=== PATIENT | male | born 1965 | race Two or more races ===

== ENCOUNTER 2016-07-05 23:28 | Emergency (ER) | payer MEDICAID, OTHER ==
[2016-07-05 23:40] VITALS: BP 183/92
[2016-07-05 23:48] LABS: Urine RBC None Seen /hpf (0 - 3)
[2016-07-06 00:27] LABS: Urine Bilirubin Negative (Negative); Urine Blood Negative /uL (Negative); Urine Color Yellow (Yellow); Urine Glucose Normal (Normal); Urine Nitrite Negative (Negative); Urine Squamous Epithelial Cell FEW /hpf (<5); Urine pH 6.5 (5.0-8.0)
[2016-07-06 00:28] LABS: Urine Ketone 1+ (Negative)
== END 2016-07-06 00:51 | disposition home or self-care (01) ==
LOC: ER 23:28
DX: N39.0 Urinary tract infection, site not specified (principal); E11.9 Type 2 diabetes mellitus without complications; I10 Essential (primary) hypertension
CPT/HCPCS: 81001

== ENCOUNTER 2017-07-11 12:47 | Inpatient (IN) | payer MEDICAID ==
[~2017-07-11] VITALS: Ht 167.6 cm; Wt 94.4 kg
[2017-07-11] VITALS (7 sets, daily range): BP systolic 116–160; BP diastolic 67–81
[2017-07-11 14:31] LABS: Basophils # (auto) 0 uL; Eosinophils # (auto) 0.1 uL; Lymphocytes # (auto) 0.9 uL; Monocytes # (auto) 0.3 uL; Neutrophils # (auto) 1.7 uL
[2017-07-11 14:32] LABS: Eosinophils % (auto) 3.6 % (0.0-7.0); Hematocrit 25.1 % (41.0-53.0); Lymphocytes % (auto) 30.2 % (10.0-50.0); Mean Corpuscular Hemoglobin 15.6 pg (28.0-32.0); Mean Corpuscular Hgb Conc. 27.9 g/dL (32.0-36.0); Monocytes % (auto) 9.1 % (0.0-12.0); Neutrophils % (auto) 56.1 % (37.0-80.0); Nucleated Red Blood Cells % 0.1 %; Platelet Count (auto) 202 10^3/uL (140-450); Red Blood Cells 4.47 10^6/uL (4.5-5.90); White Blood Cell 2.9 10^3/uL (4.4-10.8)
[2017-07-11 14:50] LABS: Alanine Aminotransferase 52 U/L (16-61); Albumin 3.3 g/dL (3.4-5.0); Alkaline Phosphatase 60 U/L (45-117); Anion Gap 7 (5-15); Aspartate Aminotransferase 17 U/L (15-37); BUN/Creatinine Ratio 17.6; Bilirubin, Total 0.3 mg/dL (0.2-1.0); Blood Urea Nitrogen 18 mg/dL (7-18); Carbon Dioxide 24 mmol/L (21-32); Chloride 112 mmol/L (98-107); GFR African American 100 mL/min; GFR Non-African American 83 mL/min; Glucose 99 mg/dL (74-106); Potassium 4.3 mmol/L (3.5-5.1); Red Cell Distribution Width 20.6 % (11.8-14.3); Sodium 143 mmol/L (136-145); Total Protein 6.7 g/dL (6.4-8.2)
[2017-07-11] MEDS ORDERED: ONDANSETRON HCL 4 MG/2 ML VIAL IV PRN (16:15)
[2017-07-11] MEDS ORDERED: MORPHINE SULFATE 4 MG/ML SYR/VIAL IV PRN (16:15)
[2017-07-11] MEDS ORDERED: NITROGLYCERIN 0.4 MG SL TAB SL PRN (16:15)
[2017-07-11] MEDS ORDERED: PANTOPRAZOLE 40 MG TAB PO ONE (16:15)
[2017-07-11 16:31] LABS: % Iron Saturation 2.5 % (20-55)
[2017-07-11 16:56] LABS: Folate (Folic Acid) 19.05 ng/mL (5.38-24)
[2017-07-11] MEDS: HYDROcodone-ACET 5/325MG TAB PO PRN ×2 (17:42→22:00)
[2017-07-11 21:33] LABS: Urine Bacteria NONE SEEN /hpf (None Seen); Urine Blood Negative /uL (Negative); Urine Mucus FEW (None Seen); Urine WBC 2 /hpf (0 - 3)
[2017-07-12] MEDS ORDERED: TEMAZEPAM 15 MG CAP PO ONE (00:30)
[2017-07-12 00:55] VITALS: BP 138/87
[2017-07-12] MEDS ORDERED: HYDR-531 PO (01:18)
[2017-07-12] MEDS ORDERED: LEVO50TA7 PO (01:19)
[2017-07-12 01:51] VITALS: BP 133/79
[2017-07-12] MEDS: HYDROcodone-ACET 5/325MG TAB PO PRN ×2 (03:57→08:48)
[2017-07-12 04:23] VITALS: BP 144/85
[2017-07-12 05:43] LABS: Basophils # (auto) 0 uL; Eosinophils # (auto) 0.1 uL; Hemoglobin 8.3 g/dL (13.5-17.5); Monocytes # (auto) 0.4 uL; White Blood Cell 3.6 10^3/uL (4.4-10.8)
[2017-07-12 05:45] LABS: Basophils % (auto) 0.8 % (0.0-2.0); Eosinophils % (auto) 2.8 % (0.0-7.0); Hematocrit 27.6 % (41.0-53.0); Lymphocytes # (auto) 1.5 uL; Lymphocytes % (auto) 40.4 % (10.0-50.0); Mean Corpuscular Hemoglobin 17.9 pg (28.0-32.0); Mean Corpuscular Hgb Conc. 29.9 g/dL (32.0-36.0); Mean Corpuscular Volume 60.1 fL (80.0-100.0); Monocytes % (auto) 11.4 % (0.0-12.0); Neutrophils # (auto) 1.6 uL; Neutrophils % (auto) 44.6 % (37.0-80.0); Nucleated Red Blood Cells % 0.1 %; Platelet Count (auto) 174 10^3/uL (140-450)
[2017-07-12 05:49] LABS: Red Cell Distribution Width 23.8 % (11.8-14.3)
[2017-07-12 05:51] LABS: INR 0.96 (0.9-1.15); Partial Thromboplastin Time 22.5 sec (22.64-33.71); Prothrombin Time 10.5 sec (9.37-12.3)
[2017-07-12 09:21] VITALS: BP 150/74
[2017-07-12] MEDS ORDERED: PANTOPRAZOLE 40 MG TAB PO SCH (10:00)
[2017-07-12 13:00] VITALS: BP 158/88
[2017-07-12 14:02] VITALS: BP 143/86
== END 2017-07-12 16:49 | disposition home or self-care (01) | DRG 663 ==
LOC: ER 12:51 → OVERFLOW 12:52 → WEST WING 18:18
PROVIDERS: ADMIT Internal Medicine; ATTEND Internal Medicine
PROC: 30233N1 Transfusion of Nonautologous Red Blood Cells into Peripheral Vein, Percutaneous Approach (ICD-10-PCS; principal; 2017-07-12)
DX: D50.9 Iron deficiency anemia, unspecified (principal); N31.9 Neuromuscular dysfunction of bladder, unspecified; I10 Essential (primary) hypertension; E66.9 Obesity, unspecified; E03.9 Hypothyroidism, unspecified; E11.9 Type 2 diabetes mellitus without complications; K21.9 Gastro-esophageal reflux disease without esophagitis; K57.90 Diverticulosis of intestine, part unspecified, without perforation or abscess without bleeding; Z87.891 Personal history of nicotine dependence; Z68.33 Body mass index [BMI] 33.0-33.9, adult
CPT/HCPCS: 36415; 36430; 80053; 81001; 82270; 82607; 82746; 83036; 83540; 83550; 84484; 85025; 85610; 85730; 86850; 86900; 86901; 86920; 94761

== ENCOUNTER 2018-08-06 14:47 | Emergency (ER) | payer MEDICAID ==
[~2018-08-06] VITALS: Ht 170.2 cm; Wt 90.7 kg
[~2018-08-06 14:47] MED LIST: HYDR-531 PO; LEVO50TA7 PO
[2018-08-06 14:51] VITALS: BP 150/95
== END 2018-08-06 19:48 | disposition home or self-care (01) ==
LOC: ER 14:57
DX: S52.021A Displaced fracture of olecranon process without intraarticular extension of right ulna, initial encounter for closed fracture (principal); E11.9 Type 2 diabetes mellitus without complications; I10 Essential (primary) hypertension; W01.198A Fall on same level from slipping, tripping and stumbling with subsequent striking against other object, initial encounter; Y93.89 Activity, other specified; Y99.8 Other external cause status; Y92.39 Other specified sports and athletic area as the place of occurrence of the external cause
CPT/HCPCS: 29105; 73080

== ENCOUNTER 2019-11-25 00:38 | Inpatient (IN) | payer MEDICAID ==
[~2019-11-25] VITALS: Ht 170.2 cm; Wt 88.1 kg
[2019-11-25] VITALS (49 sets, daily range): BP systolic 88–127; BP diastolic 42–72
[2019-11-25] MEDS ORDERED: SODIUM CHLORIDE 0.9% 2,450 ML IV ONE (01:45)
[2019-11-25 02:25] LABS: Basophils # (auto) 0 10 ^3/uL (0-0.2); Eosinophils # (auto) 0 10 ^3/uL (0-0.8); Eosinophils % (auto) 0.1 % (0.0-7.0); White Blood Cell 16.1 10^3/uL (4.4-10.8)
[2019-11-25 02:26] LABS: Basophils % (auto) 0.1 % (0.0-2.0); Hematocrit 39.9 % (41.0-53.0); Hemoglobin 13.8 g/dL (13.5-17.5); Lymphocytes % (auto) 6.1 % (10.0-50.0); Mean Corpuscular Hemoglobin 27.6 pg (28.0-32.0); Mean Corpuscular Hgb Conc. 34.7 g/dL (32.0-36.0); Mean Corpuscular Volume 79.4 fL (80.0-100.0); Monocytes % (auto) 6.3 % (0.0-12.0); Neutrophils # (auto) 14.1 10 ^3/uL (1.6-8.6); Neutrophils % (auto) 87.4 % (37.0-80.0); Platelet Count (auto) 276 10^3/uL (140-450); Red Blood Cells 5.02 10^6/uL (4.5-5.90); Red Cell Distribution Width 17.5 % (11.8-14.3)
[2019-11-25 02:44] LABS: Albumin 2.9 g/dL (3.4-5.0); BUN/Creatinine Ratio 13.5; Calcium 7.8 mg/dL (8.5-10.1)
[2019-11-25 02:47] LABS: INR 1.01 (0.9-1.15); Partial Thromboplastin Time 27.6 sec (23.0-31.2)
[2019-11-25 02:48] LABS: Bilirubin, Total 0.3 mg/dL (0.2-1.0); Total Protein 6.7 g/dL (6.4-8.2)
[2019-11-25 02:53] LABS: Potassium 2.4 mmol/L (3.5-5.1)
[2019-11-25] MEDS ORDERED: CLINDAMYCIN 300MG IV 50 ML IV ONE (03:00)
[2019-11-25] MEDS ORDERED: cefTRIAXone 1GM/50ML D5W 50 ML IV ONE (03:00)
[2019-11-25] MEDS ORDERED: POTASSIUM CHL 20 Meq TABLET PO ONE ×2 (03:00→12:00)
[2019-11-25 03:35] LABS: Urine Bacteria MOD /hpf (None Seen); Urine Blood 3+ /uL (Negative); Urine Hyaline Cast MANY /lpf (0 - 2); Urine Mucus FEW (None Seen); Urine WBC 882 /hpf (0 - 3); Urine WBC Clumps PRESENT /hpf (None Seen)
[2019-11-25] MEDS: MORPHINE SULFATE 4 MG/ML SYR/VIAL IV ONE ×2 (03:59→06:05)
[2019-11-25] MEDS ORDERED: ONDANSETRON HCL 4 MG/2 ML VIAL IV ONE (04:00)
[2019-11-25] MEDS ORDERED: SODIUM CHLORIDE 0.9% 1,000 ML IV ONE (05:15)
[2019-11-25] MEDS ORDERED: NOREPINEPHRINE 8 MG/250ML KIT 250 ML IV ONE (05:50)
[2019-11-25] MEDS ORDERED: NOREPINEPHRINE 8 MG/250ML KIT 250 ML IV SCH (06:15)
[2019-11-25] MEDS: NOREPINEPHRINE 8 MG/250ML KIT 250 ML IV SCH ×3 (06:21→19:44)
[2019-11-25] MEDS ORDERED: MORPHINE SULF INJ 2 MG/ML SYRINGE 1ML IV PRN (07:00)
[2019-11-25] MEDS ORDERED: NITROGLYCERIN 0.4 MG SL TAB SL PRN (07:00)
[2019-11-25] MEDS ORDERED: ONDANSETRON HCL 4 MG/2 ML VIAL IV PRN (07:00)
[2019-11-25] MEDS ORDERED: LORazepam 0.5 MG TAB PO PRN (07:00)
[2019-11-25] MEDS ORDERED: ACETAMINOPHEN 325 MG TAB PO PRN (07:00)
[2019-11-25] MEDS: cefTRIAXone 1GM/50ML D5W 50 ML IV SCH (09:47)
[2019-11-25] MEDS: SODIUM CHLORIDE 0.9% 1,000 ML IV SCH ×2 (09:47→16:41)
[2019-11-25] MEDS: DOCUSATE SOD 100 MG CAP PO SCH (09:47)
[2019-11-25] MEDS: ASPirin 81 mg TAB PO SCH (09:47)
[2019-11-25] MEDS: POTASSIUM CHL 20MEQ/100ML 100 ML IV SCH ×2 (09:47→10:23)
[2019-11-25] MEDS: HYDROcodone-ACET 5/325MG TAB PO PRN ×4 (09:50→23:33)
[2019-11-25] MEDS: ENOXAPARIN SOD 80 MG/0.8ML SYRINGE SC SCH (09:51)
[2019-11-25] MEDS ORDERED: CLOPIDOGREL BISULFATE 75 MG TAB PO SCH (10:00)
[2019-11-25] MEDS ORDERED: ENALAPRIL MALEATE 2.5 MG TAB PO SCH (10:00)
--- NOTE | 2019-11-25 10:25 | NUR ---
Admit to ICU from [facility] admitted to ICU via judy on monitor technician, on room air. Patient able to transfer to ICU bed with no assistance, patient connected to ICU monitoring, weighed by bedscale, oriented to Janett Antony, primary RN, unit, and no visitors at this time due to Covid 19.
--- NOTE | 2019-11-25 11:20 | NUR ---
HOSPITALIST VISITS/WOUND CARE PICS TAKEN DR GARCIA AT BEDSIDE, UPDATED ON PATIENTS STATUS, ORDERS WILL BE ENTERED BY DR GARCIA. WOUND CARE PICS TO LEFT HEEL TAKEN, PENDING WOUND CARE CONSULT.
--- NOTE | 2019-11-25 11:40 | NUR ---
Family updated on pt status Family of [facility] updated on patient's status and condition, Usha unable to verify password at this time. Patient will be notified and asked to give his sister a call. Usha verbalized understanding.
[2019-11-25] MEDS ORDERED: LEVO75TA6 PO (12:08)
[2019-11-25 12:25] LABS: Magnesium 2.3 mg/dL (1.6-2.6)
[2019-11-25] MEDS ORDERED: FURO40TA4 PO (12:35)
[2019-11-25] MEDS ORDERED: POTA10TA32 PO (12:35)
[2019-11-25] MEDS ORDERED: FLUT1SPR5 (12:36)
[2019-11-25] MEDS ORDERED: ERGO1CAP12 PO (12:39)
[2019-11-25] MEDS ORDERED: DICL-176 PO (12:40)
[2019-11-25] MEDS ORDERED: IBUP800T24 PO (12:41)
[2019-11-25] MEDS ORDERED: FERR325T20 PO (12:41)
[2019-11-25] MEDS ORDERED: AMIT150T PO (12:42)
[2019-11-25] MEDS ORDERED: TEST200I32 IJ (12:43)
[2019-11-25] MEDS ORDERED: CYAN1TAB11 PO (12:44)
[2019-11-25] MEDS ORDERED: PANTOPRAZOLE 40 MG/10 ML VIAL INJ IV ONE (13:15)
--- NOTE | 2019-11-25 13:36 | NUR ---
PAGED HOSPITALIST RE IN HOUSE COVID PAGED DR GARCIA TO NOTIFY OF NEGATIVE IN HOUSE COVID RESULTS, AWAITING RESPONSE.
[2019-11-25] MEDS ORDERED: LIDO5PAD8 EX (13:39)
[2019-11-25] MEDS ORDERED: ESZO1TAB15 PO (13:39)
[2019-11-25] MEDS ORDERED: PANT40TA2 PO (13:40)
[2019-11-25] MEDS ORDERED: POM PO (13:43)
[2019-11-25] MEDS ORDERED: SULF-92 PO (13:46)
[2019-11-25] MEDS: CLINDAMYCIN 600MG IV 50 ML IV SCH ×2 (14:01→21:20)
--- NOTE | 2019-11-25 15:02 | NUR ---
NEPHROLOGY/APPLICATION DESIGNER AT BEDSIDE DR TRAN UPDATED ON PATIENT'S STATUS, DR TRAN DISCUSSED PLAN OF CARE WITH PATIENT. APPLICATION DESIGNER AT BEDSIDE.
[2019-11-25 16:10] LABS: Potassium 2.6 mmol/L (3.5-5.1)
--- NOTE | 2019-11-25 16:18 | NUR ---
PAGED HOSPITALIST/NEPHROLOGY REGARDING CRITICAL LAB VALUE - POTASSIUM 2.6, AWAITING RESPONSE.
--- NOTE | 2019-11-25 16:21 | NUR ---
RETURN CALL FROM DR TRAN AWARE OF POTASSIUM LEVEL, STATED SHE WOULD ENTER ORDERS.
[2019-11-25 16:28] LABS: Alcohol, Urine < 3.0 mg/dL (0-10); Amphetamine Screen, Urine NEGATIVE (NEGATIVE); Barbiturate Scree,Urine NEGATIVE (NEGATIVE); Benzodiazephine Screen, Urine NEGATIVE (NEGATIVE); Cannabinoid Screen, Urine NEGATIVE (NEGATIVE); Cocaine Screen, Urine NEGATIVE (NEGATIVE); Opiate Scree,Urine NEGATIVE (NEGATIVE); Phencyclidine Screen, Urine NEGATIVE (NEGATIVE)
[2019-11-25] MEDS: POTASSIUM CHL 20 Meq TABLET PO SCH ×2 (16:40→17:58)
--- NOTE | 2019-11-25 16:45 | NUR ---
SPOKE WITH NEPHROLOGY DR TRAN AWARE OF URINE OUTPUT THUS FAR AND REPEAT POTASSIUM LEVEL AFTER ADMINISTERING ORAL MEDICATIONS. ORDERS TO REPEAT POTASSIUM AT 2200 TONIGHT AND VERBALIZED UNDERSTANDING FOR URINE OUTPUT.
--- NOTE | 2019-11-25 19:36 | NUR ---
OPENING NOTE REPORT RECEIVED AND ASSUMED CARE OF PT. BEDSIDE CHECK DONE WITH RN CEDRIC. ORIENTED PT TO THIS RN, FALL PRECAUTIONS, AND POC FOR THIS EVENING. PT VERBALIZED UNDERSTANDING. PHYSICAL ASSESSMENT DONE. PT IS A0X4, INDEPENDENT WITH MILD WEAKNESS TO BLE DUE TO WOUND HE SAID HE GOT FROM STEPPING ON A CAN AND STATED HX OF NEUROPATHY. R TLC RUNNING FLUIDS PER ORDERS AND LEVO GTT PER PROTOCOL- SEE IV SPREADSHEET. GALLEGOS CATHETER PT CAME IN WITH AND SAYS HE GETS CATHETER SWITCHED OUT ONCE A MONTH BUT DOES NOT KNOW EXACT DAY CURRENT ONE WAS INSERTED. WILL CONTINUE TO MONITOR AND ASSESS PT.
--- NOTE | 2019-11-25 21:36 | NUR ---
PT CARE/ACTIVITY PT REQUESTING BATH. THIS RN STOOD BY TO ASSIST PT STOOD AT BEDSIDE TO BATHE HIMSELF. NO REPORTS OF DIZZINESS/SOB AND STABLE VITAL SIGNS. SP02 READINGS LABILE DUE TO PT MOVEMENT. ENCOURAGED AND EDUCATED PT ON IMPORTANCE OF STAYING IN BED DUE TO VASOPRESSOR THERAPY. VERBALIZED UNDERSTANDING AT THIS TIME. WOUND TO LEFT HEEL CLEANSED WITH GAUZE AND WOUND SEAT COVER INSTALLER. ROSA MARIA APPLIED UNDER TO ABSORB ANY DRAINAGE FROM FOOT. PT BRUSHED HIS TEETH INDEPENDENTLY AND NEW GOWN APPLIED.
[2019-11-25] MEDS ORDERED: ATORVASTATIN 20 MG TAB PO SCH (22:00)
[2019-11-25] MEDS: ZOLPIDEM TARTRATE 5 MG TAB PO PRN (23:33)
[2019-11-26] VITALS (81 sets, daily range): BP systolic 71–153; BP diastolic 16–84
--- NOTE | 2019-11-26 02:08 | NUR ---
PT ACTIVITY PT INSISTENT ON GETTING OOB TO BEDSIDE CHAIR TO HELP WITH HIS BACK AND LEG PAIN DESPITE BEING EDUCATED ON SIDE EFFECTS OF VASOPRESSOR THERAPY. THIS RN AT BEDSIDE TO ASSIST AND MONITOR. VSS. PT PLACED IN CHAIR WITH CALL LIGHT AND EDUCATED ON FALL PRECAUTIONS. VERBALIZED UNDERSTANDING.
--- NOTE | 2019-11-26 02:26 | NUR ---
PT PLACED BACK IN BED WITH NO COMPLAINTS OF DIZZINESS/SOB/DISTRESS. CALL LIGHT WITHIN REACH.
[2019-11-26 05:06] LABS: Basophils # (auto) 0 10 ^3/uL (0-0.2); Basophils % (auto) 0.1 % (0.0-2.0); Eosinophils # (auto) 0 10 ^3/uL (0-0.8); Eosinophils % (auto) 0.4 % (0.0-7.0); Hematocrit 37.1 % (41.0-53.0); Hemoglobin 12.7 g/dL (13.5-17.5); Lymphocytes % (auto) 10.1 % (10.0-50.0); Mean Corpuscular Hemoglobin 27.5 pg (28.0-32.0); Mean Corpuscular Hgb Conc. 34.3 g/dL (32.0-36.0); Mean Corpuscular Volume 80.1 fL (80.0-100.0); Monocytes # (auto) 0.8 10 ^3/uL (0-1.3); Monocytes % (auto) 8.4 % (0.0-12.0); Neutrophils # (auto) 7.6 10 ^3/uL (1.6-8.6); Platelet Count (auto) 223 10^3/uL (140-450); Red Blood Cells 4.63 10^6/uL (4.5-5.90); Red Cell Distribution Width 16.8 % (11.8-14.3); White Blood Cell 9.4 10^3/uL (4.4-10.8)
[2019-11-26] MEDS: HYDROcodone-ACET 5/325MG TAB PO PRN ×4 (05:09→22:13)
[2019-11-26] MEDS: CLINDAMYCIN 600MG IV 50 ML IV SCH ×3 (05:32→22:12)
[2019-11-26 05:38] LABS: Albumin 2.4 g/dL (3.4-5.0); Calcium 8.4 mg/dL (8.5-10.1); Magnesium 2.4 mg/dL (1.6-2.6); Potassium 3.1 mmol/L (3.5-5.1)
[2019-11-26 05:42] LABS: BUN/Creatinine Ratio 20.4; Bilirubin, Total 0.3 mg/dL (0.2-1.0); Total Protein 6.2 g/dL (6.4-8.2)
--- NOTE | 2019-11-26 08:00 | NUR ---
Opening Shift Note Assumed care of patient, awake and alert. No S/S of distress/SOB or pain. See interventions for complete assessment. Bed locked on low position, side rails up x2, bed alarms on at all times, call encarnacion within reach, instructed on POC and to call for assist PRN, will continue to monitor for changes Q1hr and PRN.
[2019-11-26] MEDS ORDERED: POTASSIUM CHL 20 Meq TABLET PO ONE (09:00)
[2019-11-26] MEDS: cefTRIAXone 1GM/50ML D5W 50 ML IV SCH (09:30)
[2019-11-26] MEDS: ENOXAPARIN SOD 80 MG/0.8ML SYRINGE SC SCH (09:30)
[2019-11-26] MEDS: ASPirin 81 mg TAB PO SCH (09:30)
[2019-11-26] MEDS: PANTOPRAZOLE 40 MG/10 ML VIAL INJ IV SCH (09:30)
[2019-11-26] MEDS: DOCUSATE SOD 100 MG CAP PO SCH (09:31)
--- NOTE | 2019-11-26 10:35 | NUR ---
Dr Nair at bedside. Updated on patient's status. Clarified if patient is a Covid 19 rule out since rapid test was done, received order to go ahead and perform COVID 19 PCR test. Patient seen and examined. Will carry out new orders.
--- NOTE | 2019-11-26 10:51 | NUR ---
COVID swab sent to lab
[2019-11-26] MEDS ORDERED: DEXTROSE (50%) 50ML SYRG IV PRN (11:00)
[2019-11-26] MEDS: SODIUM CHLORIDE 0.9% 1,000 ML IV SCH ×3 (11:14→23:11)
--- NOTE | 2019-11-26 11:21 | NUR ---
Dr Carver ay bedside, updated on patient's status. Patient seen and examined. Will carry out new orders.
[2019-11-26] MEDS: ACCU-CHEK COMFORT CURVE STRIP VI SCH ×3 (12:22→22:12)
--- NOTE | 2019-11-26 15:40 | NUR ---
Assisted patient from bed to bedside chair, fall precautions in place. Patient tolerated well.
[2019-11-26] MEDS: diphenhdrAMINE HCL 25 MG CAP PO PRN (16:45)
--- NOTE | 2019-11-26 18:00 | NUR ---
Patient's BP 120/73, Levophed drip turned off. Will continue to monitor.
--- NOTE | 2019-11-26 18:19 | NUR ---
WOUND CARE NOTE: IN TO SEE PATIENT AT THIS TIME FOR WOUND TO RIGHT HEEL. PATIENT ADMITTED TO [facility] WITH DIAGNOSIS OF NSTEMI, CELLULITIS OF LEFT FOOT, ACUTE RENAL FAILURE. CURRENT LEYDI SCORE IS 17. PATIENT IS AMBULATORY, ABLE TO SELF TURN/REPOSITION SELF. HE IS NOTED TO HAVE A CHRONIC 1 X 1 X 0.2 CM DFU ULCER TO THE RIGHT PLANTAR FOOT/HEEL. THERE IS A PODIATRY CONSULT ORDERED AND IS PENDING. WOUND BED IS COVERED WITH BLACK ESCHAR. PERIWOUND IS PINK, CALLOUSED. THERE IS NO DRAINAGE NOTED. CLEANSED WOUND WITH WOUND CLEANSER, PATTED DRY WITH STERILE GAUZE. WOUND PHOTO TAKEN UPON ADMIT, AND AGAIN AT THIS TIME FOR REFERENCE. APPLIED THERAHONEY. COVER WITH OPTIFOAM GENTLE DRESSING. PATIENT EDUCATED IN WOUND CARE/DIABETIC FOOT-WOUND CARE. PATIENT VERBALIZED UNDERSTANDING. RECOMMEND: SKIN/WOUND CARE PLAN, EOD/PRN DRESSING CHANGE WITH WOUND CLEANSER, THERAHONEY, OPTIFOAM GENTLE DRESSING, PODIATRY CONSULT (PENDING), DIETARY CONSULT, CONTINUED MONITORING BY WOUND CARE TEAM. Addendum: 11/26/19 at 1829 by Dacia Ang RN Amended: Links added.
--- NOTE | 2019-11-26 20:00 | NUR ---
ADMITTED ON 11/25/19 WITH NAUSEA, VOMITING, DIARRHEA, WEAKNESS. HYPOTENSIVE ON ADMISSION. LEVOPHED DISCONTINUED AT 1800 TODAY. MD DIAGNOSIS: NSTEMI, LEFT FOOT CHRONIC ULCER. RIJ TLC WITH NORMAL SALINE AT 100CC/HR. ALERT. ORIENTED. AMBULATORY TO CHAIR. NSR WITHOUT ECTOPY. HAS A GALLEGOS FROM HOME. LAST BLOOD SUGAR 81. COVID NEGATIVE. POTASSIUM 3.1, REPLACED WITH 60MEQ OF EFFERVESCENT. PLAN: NM BONE SCAN TOMORROW AT 8AM. ON SYNTHROID.
--- NOTE | 2019-11-26 20:52 | NUR ---
TROPONIN LEVEL DRAWN FROM CENTRAL LINE.
--- NOTE | 2019-11-26 21:00 | NUR ---
HE INFORMED ME OF ALL THE DETAILS OF BEING SHOT. HE HAS A GALLEGOS BECAUSE OF SEVERE URGENCY. AT HOME HE CLAMPS IT FOR 2 HOURS AT A TIME, THEN OPENS IT. STATED THAT PART OF HIS SMALL BOWEL WAS REMOVED. AT THE AGE OF 19 , HE WAS PARALYZED. NOW HE CAN WALK BUT HE CALLS IT A HOP ALONG. IF HE GETS DIARRHEA, THERE IS NO SPHINCTER CONTROL. IF HE HAS PAIN , HE TAKES NORCO FOR BACK PAIN, RIGHT ELBOW PAIN(PREVIOUS TRICEP REPAIR SURGERY), ANKLE PAIN OR PREVIOUS LEFT SHOULDER TEAR PAIN. HAS NO FEELING IN THE BOTTOM OF HIS LEFT FOOT. PARTIAL FEELING IN THE RIGHT FOOT. NO FEELING IN THE RIGHT LEG, HAS A BRACE FOR THAT LEG. HE STATES THAT HIS ORIGINAL NAUSEA/VOMITING ENDED AT HOME. STATED THAT HIS LAST DIARRHEA WAS AT HOME. DENIES FLANK PAIN. ATE 100% OF HIS DINNER. STEPPED ON A CAN 2 WEEKS AGO AND HAS A LEFT FOOT WOUND FROM THAT STILL. HE IS HIS MOMS CAREGIVER. HIS SISTER IS LOOKING AFTER HER WHILE HE IS HERE. BP: SYSTOLIC HAS REMAINED ABOVE 96.
--- NOTE | 2019-11-26 22:00 | NUR ---
ASKED FOR A NORCO FOR HIS LEVEL 7 BACK PAIN. ANTIBIOTIC HUNG. ALL NEW TUBING AND IVF HUNG. ACCUCHECK WITHIN NORMAL RANGE. CHANGED BLOOD PRESSURE READINGS TO Q 1 HOUR. SHIPPING TRACK SUPERVISOR AWARE OF TELE TRANSFER ORDERS.
[2019-11-27] VITALS (8 sets, daily range): BP systolic 103–112; BP diastolic 54–66
--- NOTE | 2019-11-27 | NUR ---
WALKED IN ROOM, PATIENT RUBBING HIS ULCER FOOT. LEG IS HOT FROM THE MID CALF DOWN. REDNESS AT ANKLE. REMOVED DRESSING. 2 SMALL WOUNDS WITH A DARK SCAB BASE. AREA SURROUNDING IT IS RED. SEROSANGUINOUS DRNG FROM BOTH WOUNDS. SPRAYED THE WOUNDS 7 TIMES WITH WOUND SPRAY. PATTED DRY WITH 4X4S. THERAHONEY PUT ON BOTH AREAS AND COVERED WITH A FOAM DRESSING. LUNGS CLEAR. BILATERAL RADIAL ARTERY PULSES STRONG. BOTH PEDALS ARE WEAK. PATIENT LAYS DOWN, SITS UP ON EDGE OF BED OCCASIONALLY. WHENEVER HIS BACK STARTS HURTING, HE WILL SIT ON THE EDGE OF THE BED. DOESN'T USE A PILLOW UNDER HIS LEG BECAUSE IT WILL PUT PRESSURE ON THE FOOT WOUNDS.
--- NOTE | 2019-11-27 00:29 | NUR ---
KEEPING BLOOD PRESSURE WITHIN AN ACCEPTABLE RANGE.
--- NOTE | 2019-11-27 01:00 | NUR ---
REQUESTED NU BLACK
[2019-11-27] MEDS: ZOLPIDEM TARTRATE 5 MG TAB PO PRN ×2 (01:15→22:25)
--- NOTE | 2019-11-27 02:00 | NUR ---
REQUESTED BLOOD PRESSURE CUFF OFF. NSR WITHOUT ECTOPY. LUNGS CLEAR. DENIES PAIN.
[2019-11-27] MEDS: HYDROcodone-ACET 5/325MG TAB PO PRN ×5 (02:48→22:24)
--- NOTE | 2019-11-27 02:50 | NUR ---
LEVEL 7 LEFT LEG PAIN. DANIELA GIVEN
--- NOTE | 2019-11-27 04:46 | NUR ---
PATIENT HAS BEEN TRYING TO SHUFFLE HIMSELF INTO A MORE COMFORTABLE POSITION. FOUND HIM IN A BACKWARDS POSITION . IV TUBING KINKED. REPOSITIONED HIM NORMAL IN THE BED. NSR WITHOUT ECTOPY. PAIN FREE.
[2019-11-27 05:08] LABS: Calcium 8.1 mg/dL (8.5-10.1); Potassium 3.1 mmol/L (3.5-5.1)
[2019-11-27 05:13] LABS: BUN/Creatinine Ratio 15.6
--- NOTE | 2019-11-27 05:38 | NUR ---
FOUND PATIENT WITH HIS FOOT DRESSING OFF. WOUND CARE REDONE. WASHED WITH WOUND SPRAY.THERAHONEY APPLIED AND FOAM DRESSING TO COVER. PARTIALLY KASIE'D. EATING AMADOR CRACKERS.
[2019-11-27] MEDS: ACCU-CHEK COMFORT CURVE STRIP VI SCH ×4 (06:20→22:23)
[2019-11-27] MEDS: LEVOTHYROXINE SODIUM 25 MCG TAB PO SCH (06:20)
[2019-11-27] MEDS: CLINDAMYCIN 600MG IV 50 ML IV SCH ×3 (06:20→22:23)
[2019-11-27] MEDS: diphenhdrAMINE HCL 25 MG CAP PO PRN (06:29)
--- NOTE | 2019-11-27 06:42 | NUR ---
VSS. LARGE URINE OUTPUT
--- NOTE | 2019-11-27 06:55 | NUR ---
PATIENT REQUESTING A NORCO FOR LEG AND BACK PAIN.
--- NOTE | 2019-11-27 07:50 | NUR ---
Patient out of room to Nuclear Medicine for bone scan.
[2019-11-27] MEDS: PANTOPRAZOLE 40 MG/10 ML VIAL INJ IV SCH (09:20)
[2019-11-27] MEDS: ASPirin 81 mg TAB PO SCH (09:21)
[2019-11-27] MEDS: DOCUSATE SOD 100 MG CAP PO SCH (09:21)
[2019-11-27] MEDS: ENOXAPARIN SOD 40 MG/0.4 ML SYRINGE SC SCH (09:21)
[2019-11-27] MEDS: cefTRIAXone 1GM/50ML D5W 50 ML IV SCH (09:21)
--- NOTE | 2019-11-27 11:10 | NUR ---
Dr Nair at bedside, updated on patient's status. Patient seen and examined. Will carry out new orders.
--- NOTE | 2019-11-27 11:12 | NUR ---
Patient out of room to Nuclear Med.
--- NOTE | 2019-11-27 11:22 | NUR ---
Nutrition Assessment/consult Notes please see attached link for complete assessment [employer] needs BW 84 [id number] kcals (23-25 kcal/kgBW), Est Protein needs: 84-109 gms/day (1.0-1.3 gm/kgBW r/t wounds). Will continue to monitor and reassess prn. Addendum: 11/27/19 at [address] Amended: Links added.
[2019-11-27] MEDS ORDERED: POTASSIUM CHL 20 Meq TABLET PO ONE (11:30)
--- NOTE | 2019-11-27 11:30 | NUR ---
Patient back to room from [facility].
--- NOTE | 2019-11-27 12:00 | NUR ---
Dr Beach at bedside. Updated on patient's status. Patient seen and examined. Will carry out new orders.
[2019-11-27] MEDS: SODIUM CHLORIDE 0.9% 1,000 ML IV SCH (13:46)
--- NOTE | 2019-11-27 16:54 | NUR ---
Foam cradle placed on LT foot.
--- NOTE | 2019-11-27 17:09 | NUR ---
Patient's blood sugar 67mg/dl, patient given 250 ml Apple juice and two packs of Ramos crackers. Will continue to monitor.
--- NOTE | 2019-11-27 19:37 | NUR ---
ADMITTED ON 11/25/19. CURRENTLY: EXTUBATED YESTERDAY. OFF LEVOPHED FOR NOW 25 1/2 HOURS. TELEMETRY DOWNGRADE. NO BEDS. FOAM BOOT TO LEFT LEG. CONTINUES TO BE ALERT. ORIENTED. DAY. HAD VARYING LEVELS OF SENSATION ON LEGS. DRINKING, EATING WELL. GALLEGOS DRAINING CLEAR YELLOW LIQUID. WEAK PULSES IN BOTH FEET. DRESSING TO LEFT HEEL. 2 SMALL WOUNDS WITH A DARK CRUSTED BED, SURROUNDED BY HOT PINK/RED SKIN. LEFT HEEL IS SWOLLEN. POTASSIUM WAS LOW AGAIN TODAY. EFFERVESCENT POTASSIUM REPLACEMENT GIVEN. [facility] TLC ACCESS FOR IV FLUID OF NORMAL SALINE AT 70CC/HR. NUCLEAR MED BONE SCAN RESULTED. ROOM AIR. NO DYSPNEA. ADMITTING NAUSA/VOMITING/DIARRHEA/FLANK PAIN ENDED ON ADMISSION DATE. DOES HAVE PAIN IN HIS RIGHT ELBOW, BACK, LEFT SHOULDER AND LEFT LOWER LEG/ANKLE. NORCO GIVEN WITH REASONALBLE RESULTS.
--- NOTE | 2019-11-27 20:00 | NUR ---
IN ROOM WITH PATIENT. STATED i DON'T EAT MEAT. ASKED FOR AMADOR CRACKERS. ALERT. ORIENTED. LUNGS CLEAR. ROOM AIR. NO DYSPNEA. ABDOMEN SOFT. LINES STRAIGHTENED OUT. NEW CENTRAL LINE DRESSING. GOOD URINE OUTPUT. NO BM YET. PAIN IS REASONABLE. FOAM BOOT ON. NSR WITHOUT ECTOPY. TALKATIVE. SPEECH CLEAR. MOVES ALL EXTREMITIES INDEPENDENTLY. ATE 80% OF DINNER
--- NOTE | 2019-11-27 20:15 | NUR ---
RIGHT LOWER LEG IS COOL. LEFT LOWER LEG IS WARM. BOTH PULSES WEAK. DOPPLER UNNECESSARY FOR THE LEFT PULSE, BUT IT TOOK AWHILE TO FIND THE RIGHT PEDAL. I FINALLY FOUND A PULSE JUST UNDER THE BIG TOE AND NEXT TOE. LEFT HEEL/ANKLE SWOLLEN AND WARM.
--- NOTE | 2019-11-27 22:15 | NUR ---
REQUESTED PAIN PILL AND SLEEPING PILL TOGETHER. PAIN IS IN THE BACK AND LEFT LOWER LEG.
--- NOTE | 2019-11-27 22:52 | NUR ---
RECEIVED A ROOM NUMBER FOR TRANSFER TO TELE. CALLED REPORT TO BALJEET GROSS WHO IS IN CHARGE OF [facility].
--- NOTE | 2019-11-27 23:10 | NUR ---
PLACING TELEMETRY BOX ON PATIENT. PLACED IN WHEELCHAIR FOR TRANSFER.
--- NOTE | 2019-11-27 23:30 | NUR ---
PATIENT IS BEING TAKEN BY WHEELCHAIR WITH BALJEET LAMBERT TO TELEMETRY ROOM [facility]
--- NOTE | 2019-11-27 23:45 | NUR ---
ICU patient trans to floor [facility] transfered to [facility] via gurney. All patient medications and personal belongings transfered with patient to receiving floor. Pt resting comfortably in bed with callbell in reach. Will continue to monitor pt.
[2019-11-28] MEDS: HYDROcodone-ACET 5/325MG TAB PO PRN ×5 (02:27→22:07)
[2019-11-28] MEDS: SODIUM CHLORIDE 0.9% 1,000 ML IV SCH ×2 (02:27→17:34)
[2019-11-28 04:54] VITALS: BP 100/46
[2019-11-28] MEDS: LEVOTHYROXINE SODIUM 25 MCG TAB PO SCH (06:26)
[2019-11-28] MEDS: ACCU-CHEK COMFORT CURVE STRIP VI SCH ×4 (06:26→22:06)
[2019-11-28] MEDS: CLINDAMYCIN 600MG IV 50 ML IV SCH ×3 (06:26→22:06)
[2019-11-28] MEDS ORDERED: POTASSIUM CHL 20 Meq TABLET PO ONE (08:15)
[2019-11-28 09:00] VITALS: BP 104/67
[2019-11-28] MEDS: cefTRIAXone 1GM/50ML D5W 50 ML IV SCH (09:58)
[2019-11-28] MEDS: ENOXAPARIN SOD 40 MG/0.4 ML SYRINGE SC SCH (10:10)
[2019-11-28] MEDS: DOCUSATE SOD 100 MG CAP PO SCH (10:10)
[2019-11-28] MEDS: ASPirin 81 mg TAB PO SCH (10:10)
[2019-11-28] MEDS: PANTOPRAZOLE 40 MG/10 ML VIAL INJ IV SCH (10:29)
[2019-11-28 13:00] VITALS: BP 124/93
--- NOTE | 2019-11-28 14:27 | NUR ---
PT INFORMED OF DEBRIDEMENT PROCEDURE PLANNED FOR TOMORROW. PER PT, HE HAD IT DONE BEFORE AND HE DOESN'T WANT TO DO IT AGAIN AT THIS TIME. PT STATED HE HAD SEEN HOW HIS WOUND WAS DEBRIDED AND HE HAD BEEN DOING THAT TO HIS WOUND. PT STATED HE'S SCRAPING THE TISSUE WITH HIS NAILS AND HE PUTS A CREAM THAT HE BUYS AT [facility]. PER PT, HE DOESN'T WANT TO GET THE DEBRIDEMENT AND END UP STAYING AT THE HOSPITAL LONGER. HE STATED HE HAVE BILLS TO PAY AND HE CAN'T PAY THEM IF HE'S IN THE HOSPITAL. HE WANTS TO GET DISCHARGED SOON POSSIBLE. PT IS AWARE THAT HE CAN LEAVE AMA IF HE HAVE TO. DR GARCIA IS INFORMED OF PT'S DECISION.
[2019-11-28 16:44] VITALS: BP 105/53
--- NOTE | 2019-11-28 18:30 | NUR ---
WOUND CARE ON LEFT HEEL CLEANED AND DRESSED ORDERED. PT TOLERATED WELL. IV DRESSING CHANGED.
[2019-11-28] MEDS: ZOLPIDEM TARTRATE 5 MG TAB PO PRN (22:07)
[2019-11-28 23:00] VITALS: BP 116/71
[2019-11-28 23:08] VITALS: BP 116/73
[2019-11-29] MEDS: HYDROcodone-ACET 5/325MG TAB PO PRN ×2 (04:21→09:42)
--- NOTE | 2019-11-29 04:22 | NUR ---
NPO Status The patient has refused to be NPO as he states he is not getting the debridement done today. I explained the reason for the procedure but he told me like the previous nurse, that he can do it himself at home if he needed it. The patient also stated his blood sugar drops throughout the night and that he wanted to eat something before it dropped too low. Due to this issue, I did not withhold food but again confirmed with the patient he will not be getting the procedure. The patient said yes, he understood.
[2019-11-29 05:44] VITALS: BP 131/84
[2019-11-29] MEDS: CLINDAMYCIN 600MG IV 50 ML IV SCH ×2 (06:12→14:00)
[2019-11-29 06:36] LABS: Basophils # (auto) 0 10 ^3/uL (0-0.2); Basophils % (auto) 0.2 % (0.0-2.0); Eosinophils # (auto) 0.1 10 ^3/uL (0-0.8); Eosinophils % (auto) 1.5 % (0.0-7.0); Hematocrit 34.8 % (41.0-53.0); Hemoglobin 11.8 g/dL (13.5-17.5); Lymphocytes % (auto) 17.2 % (10.0-50.0); Mean Corpuscular Hemoglobin 27.4 pg (28.0-32.0); Mean Corpuscular Hgb Conc. 33.9 g/dL (32.0-36.0); Mean Corpuscular Volume 80.8 fL (80.0-100.0); Monocytes # (auto) 0.4 10 ^3/uL (0-1.3); Monocytes % (auto) 7.4 % (0.0-12.0); Neutrophils # (auto) 4.3 10 ^3/uL (1.6-8.6); Neutrophils % (auto) 73.7 % (37.0-80.0); Nucleated Red Blood Cells % 0.1 %; Platelet Count (auto) 212 10^3/uL (140-450); Red Blood Cells 4.31 10^6/uL (4.5-5.90); Red Cell Distribution Width 15.9 % (11.8-14.3); White Blood Cell 5.8 10^3/uL (4.4-10.8)
[2019-11-29] MEDS: SODIUM CHLORIDE 0.9% 1,000 ML IV SCH (06:42)
[2019-11-29] MEDS: LEVOTHYROXINE SODIUM 25 MCG TAB PO SCH (06:42)
[2019-11-29] MEDS: ACCU-CHEK COMFORT CURVE STRIP VI SCH ×2 (06:43→11:30)
[2019-11-29 06:44] LABS: Potassium 3.7 mmol/L (3.5-5.1)
[2019-11-29 06:50] LABS: BUN/Creatinine Ratio 18.2; Calcium 8.1 mg/dL (8.5-10.1)
--- NOTE | 2019-11-29 07:30 | NUR ---
Opening Shift Note RECEIVED REPORT FROM NOC RN. Assumed care of patient, awake and alert. No S/S of distress/SOB or pain. BED IN LOWEST, LOCKED POSITION WITH SIDERAILS UP x2 AND CALL LIGHT WITHIN REACH. Instructed on POC and to call for assist PRN, will continue to monitor for changes Q1hr and PRN.
--- NOTE | 2019-11-29 07:33 | NUR ---
Procedure Cancelled Called Dr. Yeung this AM about the patient refusing the procedure today. Explain that despite being educated about the need for it he still refused stating he could do it out patient or himself. He also stated that he needed to be discharged home as he has several bills to pay. the patient also did not maintain an NPO status last eating around 2am. Dr. Yeung said to cancel the procedure. Cooker Soda Elina was notified as well as Pre-op.
--- NOTE | 2019-11-29 07:42 | NUR ---
DR. CABAN AT BEDSIDE. NEW WOUND CARE ORDERS RECEIVED AND CARRIED OUT. Addendum: 11/29/19 at 1219 by MAEGAN ALEJANDRA RN RN *WRONG PATIENT.
[2019-11-29 08:50] VITALS: BP 125/79
[2019-11-29] MEDS: cefTRIAXone 1GM/50ML D5W 50 ML IV SCH (09:40)
[2019-11-29] MEDS: PANTOPRAZOLE 40 MG/10 ML VIAL INJ IV SCH (09:41)
[2019-11-29] MEDS: ENOXAPARIN SOD 40 MG/0.4 ML SYRINGE SC SCH (09:42)
[2019-11-29] MEDS: DOCUSATE SOD 100 MG CAP PO SCH (09:42)
[2019-11-29] MEDS: ASPirin 81 mg TAB PO SCH (09:42)
--- NOTE | 2019-11-29 12:15 | NUR ---
DR. DENISE AT [facility]. Addendum: 11/29/19 at 1217 by MAEGAN ALEJANDRA RN RN *WRONG PATIENT
[2019-11-29 13:02] VITALS: BP 122/90
--- NOTE | 2019-11-29 14:46 | NUR ---
AMA Note [facility] states they want to leave the hospital Against Medical Advice (AMA). Patient encouraged to stay for further treatment/stabilization. DR. DAWSON notified of patient's wishes. Patient advised of the risks and benefits of leaving AMA. Patient verbalized understanding. Patient encouraged to return to the ER if symptoms do not improve or worsen.
== END 2019-11-29 14:46 | disposition left against medical advice (07) | DRG 720 ==
LOC: ER 00:40 → OVERFLOW 00:41 → ICU WEST 10:34 → TELE-WESTW 11-27 23:20
PROVIDERS: ADMIT Hospitalist; ATTEND Internal Medicine
PROC: 02HV33Z Insertion of Infusion Device into Superior Vena Cava, Percutaneous Approach (ICD-10-PCS; principal; 2019-11-25)
DX: A41.9 Sepsis, unspecified organism (principal); L03.116 Cellulitis of left lower limb; I21.A1 Myocardial infarction type 2; N17.0 Acute kidney failure with tubular necrosis; E11.22 Type 2 diabetes mellitus with diabetic chronic kidney disease; E87.1 Hypo-osmolality and hyponatremia; N31.9 Neuromuscular dysfunction of bladder, unspecified; E87.6 Hypokalemia; E78.5 Hyperlipidemia, unspecified; N18.2 Chronic kidney disease, stage 2 (mild); E03.9 Hypothyroidism, unspecified; Z20.828 Contact with and (suspected) exposure to other viral communicable diseases; E11.621 Type 2 diabetes mellitus with foot ulcer; L97.429 Non-pressure chronic ulcer of left heel and midfoot with unspecified severity; A49.01 Methicillin susceptible Staphylococcus aureus infection, unspecified site; I12.9 Hypertensive chronic kidney disease with stage 1 through stage 4 chronic kidney disease, or unspecified chronic kidney disease; Z79.1 Long term (current) use of non-steroidal anti-inflammatories (NSAID); Z82.49 Family history of ischemic heart disease and other diseases of the circulatory system; Z83.3 Family history of diabetes mellitus; Z79.84 Long term (current) use of oral hypoglycemic drugs; Z87.891 Personal history of nicotine dependence; Z91.19 Patient's noncompliance with other medical treatment and regimen; Z53.29 Procedure and treatment not carried out because of patient's decision for other reasons; R57.9 Shock, unspecified
CPT/HCPCS: 36415; 71045; 73700; 74176; 78315; 80048; 80053; 80061; 80307; 81001; 82962; 83036; 83605; 83735; 83880; 84132; 84443; 84484; 85025; 85610; 85730; 87040; 87077; 87081; 87086; 87186; 87205; 87426; 93005; 93306; 96361; 96365; 96366; 96367; 96368; 96375; C9113; G0378; J0696; J2405; J3480; J3490

== ENCOUNTER 2020-05-30 22:30 | Emergency (ER) | payer MEDICAID ==
[~2020-05-30] VITALS: Ht 170.2 cm; Wt 95.3 kg
[~2020-05-30 22:30] MED LIST changes: +AMIT150T PO; +CYAN1TAB11 PO; +DICL75TA3 PO; +ERGO1CAP12 PO; +ESZO1TAB15 PO; +FERR325T20 PO; +FLUT1SPR5; +FURO40TA4 PO; +IBUP800T26 PO; -LEVO50TA7 PO; +LEVO75TA6 PO; +LIDO5PAD8 EX; +PANT40TA2 PO; +POM PO; +POTA10TA32 PO; +SULF800T8 PO; +TEST200I32 IJ
[2020-05-31 01:00] VITALS: BP 158/98
[2020-05-31] MEDS ORDERED: KETOROLAC TROMETH 60MG/2ML VIAL IM ONE (01:15)
== END 2020-05-31 01:52 | disposition home or self-care (01) ==
LOC: ER 22:30
DX: M70.22 Olecranon bursitis, left elbow (principal); M77.8 Other enthesopathies, not elsewhere classified; E11.9 Type 2 diabetes mellitus without complications; I10 Essential (primary) hypertension; Z87.891 Personal history of nicotine dependence; Z79.899 Other long term (current) drug therapy; Z88.2 Allergy status to sulfonamides; Y93.89 Activity, other specified
CPT/HCPCS: 73070; 96372; 99283; J1885

== ENCOUNTER 2022-08-18 09:53 | Day surgery (SDC) | payer OTHER ==
[2022-08-16 13:06] LABS: Basophils # (auto) 0 10 ^3/uL (0-0.2); Basophils % (auto) 0.4 % (0.0-2.0); Eosinophils # (auto) 0.1 10 ^3/uL (0-0.8); Eosinophils % (auto) 1.9 % (0.0-7.0); Hemoglobin 15.8 g/dL (13.5-17.5); Lymphocytes # (auto) 1.4 10 ^3/uL (0.4-5.4); Lymphocytes % (auto) 27.5 % (10.0-50.0); Mean Corpuscular Hemoglobin 28.4 pg (28.0-32.0); Mean Corpuscular Hgb Conc. 33.6 g/dL (32.0-36.0); Mean Corpuscular Volume 84.6 fL (80.0-100.0); Monocytes # (auto) 0.4 10 ^3/uL (0-1.3); Monocytes % (auto) 7.6 % (0.0-12.0); Neutrophils # (auto) 3.2 10 ^3/uL (1.6-8.6); Neutrophils % (auto) 62.6 % (37.0-80.0); Nucleated Red Blood Cells % 0.1 %; Red Blood Cells 5.55 10^6/uL (4.5-5.90); Red Cell Distribution Width 15.3 % (11.8-14.3); White Blood Cell 5.1 10^3/uL (4.4-10.8)
[2022-08-16 13:09] LABS: Urine Bacteria FEW /hpf (None Seen); Urine Blood Negative /uL (Negative); Urine Specific Gravity 1.023 (1.001-1.035); Urine WBC 15 /hpf (0 - 3); Urine WBC Clumps PRESENT /hpf (None Seen)
[2022-08-16 13:25] LABS: INR 0.96 (0.9-1.15); Partial Thromboplastin Time 26.9 sec (24.6-33.4)
[2022-08-16 14:02] LABS: Albumin 3.9 g/dL (3.4-5.0); Calcium 8.8 mg/dL (8.5-10.1); Potassium 4.1 mmol/L (3.5-5.1)
[2022-08-16 14:06] LABS: BUN/Creatinine Ratio 21.4 (10.0-20.0); Bilirubin, Total 0.3 mg/dL (0.2-1.0)
[~2022-08-18] VITALS: Ht 170.2 cm; Wt 114.3 kg
[~2022-08-18 09:53] MED LIST changes: -AMIT150T PO; +AMIT150T4 PO; -DICL75TA3 PO; -ESZO1TAB15 PO; +IBUP-1455 PO; -IBUP800T26 PO; -POM PO; +POTA-228 PO; -POTA10TA32 PO; -SULF800T8 PO
[2022-08-18] MEDS ORDERED: fentaNYL CITRATE 100 MCG/2 ML VL ONE (13:03)
[2022-08-18] MEDS ORDERED: PROPOFOL 10 MG/ML 20 ML IV ONE (13:11)
[2022-08-18] MEDS ORDERED: ONDANSETRON HCL 4 MG/2 ML VIAL IV PRN (13:45)
[2022-08-18 13:55] VITALS: BP 132/92
== END 2022-08-18 14:39 | disposition home or self-care (01) ==
LOC: GI 09:53
PROVIDERS: ATTEND Internal Medicine Gastroenterology
DX: D64.9 Anemia, unspecified (principal); K29.50 Unspecified chronic gastritis without bleeding; K64.8 Other hemorrhoids; E11.9 Type 2 diabetes mellitus without complications
CPT/HCPCS: 36415; 43239; 45378; 80053; 81001; 82962; 85025; 85610; 85730; J2704; J3010; J7030

== ENCOUNTER 2022-12-06 05:22 | Inpatient (IN) | payer MEDICAID, OTHER ==
[~2022-12-06] VITALS: Ht 170.2 cm; Wt 116.8 kg
[2022-12-06] MEDS ORDERED: IBUPROFEN 800 MG TAB PO ONE (06:00)
[2022-12-06 06:23] LABS: Basophils # (auto) 0 10 ^3/uL (0-0.2); Eosinophils # (auto) 0 10 ^3/uL (0-0.8); Hemoglobin 12.8 g/dL (13.5-17.5); Lymphocytes # (auto) 0.3 10 ^3/uL (0.4-5.4); Lymphocytes % (auto) 4.4 % (10.0-50.0)
[2022-12-06 06:27] LABS: Basophils % (auto) 0.3 % (0.0-2.0); Hematocrit 38.8 % (41.0-53.0); Mean Corpuscular Hemoglobin 26.3 pg (28.0-32.0); Mean Corpuscular Hgb Conc. 32.9 g/dL (32.0-36.0); Mean Corpuscular Volume 80.1 fL (80.0-100.0); Monocytes # (auto) 0.4 10 ^3/uL (0-1.3); Monocytes % (auto) 6.3 % (0.0-12.0); Neutrophils # (auto) 6.1 10 ^3/uL (1.6-8.6); Nucleated Red Blood Cells % 0.2 %; Red Blood Cells 4.84 10^6/uL (4.5-5.90); Red Cell Distribution Width 16.9 % (11.8-14.3); White Blood Cell 6.9 10^3/uL (4.4-10.8)
[2022-12-06 06:52] LABS: Urine Bacteria NONE SEEN /hpf (None Seen); Urine Blood Negative /uL (Negative); Urine Clarity Clear (Clear); Urine Color Yellow (Yellow); Urine Protein, UAD Negative (Negative); Urine Urobilinogen Normal (Negative); Urine WBC 1 /hpf (0 - 3); Urine pH 6.5 (5.0-8.0)
[2022-12-06 07:00] LABS: Alanine Aminotransferase 53 U/L (7-40); Albumin 4.2 g/dL (3.2-4.8); Alkaline Phosphatase 91 U/L (46-116); Anion Gap 6 (5-15); Aspartate Aminotransferase 26 U/L (13-40); BUN/Creatinine Ratio 9.5 (10.0-20.0); Bilirubin, Total 0.3 mg/dL (0.2-1.0); Blood Urea Nitrogen 10 mg/dL (9-23); Calcium 8.4 mg/dL (8.7-10.4); Carbon Dioxide 23 mmol/L (20-30); Chloride 103 mmol/L (98-107); Glucose 156 mg/dL (74-106); Potassium 3.7 mmol/L (3.5-5.1); Sodium 132 mmol/L (136-145); Total Protein 7.1 g/dL (5.7-8.2)
[2022-12-06] MEDS ORDERED: ACETAMINOPHEN 325 MG TAB PO ONE (07:15)
[2022-12-06] MEDS ORDERED: SODIUM CHLORIDE 0.9% 3,300 ML IV ONE (07:15)
[2022-12-06 07:49] LABS: INR 1.07 (0.9-1.15); Prothrombin Time 11.2 sec (9.3-11.8)
[2022-12-06 09:04] LABS: Free T3 3.25 pg/mL (2.3-4.2); Free T4 (Free Thyroxine) 0.77 ng/dL (0.89-1.76)
[2022-12-06] MEDS ORDERED: CEFTRIAXONE SODIUM 2 GM in D5W 5% 100 ML IV ONE (09:30)
[2022-12-06 09:35] VITALS: PULSE 90; RESP 20; O2SAT 95
[2022-12-06 10:40] LABS: Rapid Strep A Screen-Throat Negative
[2022-12-06 10:42] LABS: COVID19 ANTIGEN SOFIA FIA NEGATIVE (NEGATIVE)
[2022-12-06] MEDS ORDERED: ONDANSETRON HCL 4 MG/2 ML VIAL IV PRN (10:45)
[2022-12-06] MEDS ORDERED: AZITHROMYCIN 500MG/ 250ML 250 ML IV ONE (10:45)
[2022-12-06 10:58] LABS: Rapid Influenza B Negative (Negative)
[2022-12-06] MEDS ORDERED: ALBUTEROL SULF 2.5 MG/0.5ML(0.5%) NEB SOLN NEB PRN (11:00)
[2022-12-06] MEDS ORDERED: hydrALAZINE HCL 20 MG/ML VL IV PRN ×2 (11:00→12:30)
[2022-12-06] MEDS ORDERED: TESTOSTERONE CYPIONATE 200 MG IM SCH ×2 (11:00→13:15)
[2022-12-06 11:03] LABS: Rapid Influenza A Positive (Negative)
[2022-12-06] MEDS: SODIUM CHLORIDE 0.9% 1,000 ML IV SCH (11:15)
[2022-12-06 11:24] LABS: Triglycerides 80 mg/dL (< 150)
[2022-12-06 11:25] LABS: LDL Cholesterol 81 mg/dL (< 100)
[2022-12-06 11:26] LABS: Cholesterol 124 mg/dL (< 200); HDL Cholesterol 30 mg/dL (40-59)
[2022-12-06 14:19] VITALS: PULSE 88; RESP 20; O2SAT 95
[2022-12-06 14:20] VITALS: BP 135/54; PULSE 88; RESP 20; TEMP 98.9; O2SAT 95
[2022-12-06] MEDS ORDERED: GABAPENTIN 300 MG CAP PO ONE (16:30)
[2022-12-06] MEDS ORDERED: AMITRIPTYLINE HCL 25 MG TAB PO ONE (16:30)
[2022-12-06] MEDS: FUROSEMIDE 40 MG TAB PO SCH (17:01)
[2022-12-06 17:16] VITALS: BP 164/67; PULSE 92; RESP 20; TEMP 98.9; O2SAT 98
[2022-12-06] MEDS: GABAPENTIN 300 MG CAP PO SCH (21:42)
[2022-12-06] MEDS: HYDROcodone-ACET 10/325MG TAB PO PRN (21:48)
[2022-12-06] MEDS: ACETAMINOPHEN 325 MG TAB PO PRN (22:49)
[2022-12-07] VITALS (11 sets, daily range): BP systolic 118–139; BP diastolic 67–81; PULSE 83–101; RESP 16–22; TEMP 98–100.4; O2SAT 93–99
[2022-12-07] MEDS: HYDROcodone-ACET 10/325MG TAB PO PRN ×3 (04:15→19:15)
[2022-12-07] MEDS: SODIUM CHLORIDE 0.9% 1,000 ML IV SCH ×2 (04:16→21:58)
[2022-12-07] MEDS: guaiFENesin-DM 100/10mg/5ml SYR PO PRN ×2 (05:29→09:58)
[2022-12-07] MEDS: GABAPENTIN 300 MG CAP PO SCH ×3 (05:31→21:57)
[2022-12-07] MEDS: FUROSEMIDE 40 MG TAB PO SCH ×2 (05:34→18:21)
[2022-12-07] MEDS: LEVOTHYROXINE SODIUM 50 MCG TAB PO SCH (05:35)
[2022-12-07] MEDS: PANTOPRAZOLE 40 MG TAB PO SCH (05:35)
[2022-12-07] MEDS: ALBUTEROL SULF 2.5 MG/0.5ML(0.5%) NEB SOLN NEB PRN ×2 (06:23→21:44)
[2022-12-07 07:05] LABS: Basophils # (auto) 0 10 ^3/uL (0-0.2); Eosinophils # (auto) 0 10 ^3/uL (0-0.8); Lymphocytes # (auto) 0.8 10 ^3/uL (0.4-5.4); Monocytes # (auto) 0.4 10 ^3/uL (0-1.3); Neutrophils # (auto) 3.2 10 ^3/uL (1.6-8.6); Red Cell Distribution Width 17.2 % (11.8-14.3)
[2022-12-07 07:08] LABS: Basophils % (auto) 0.4 % (0.0-2.0); Eosinophils % (auto) 0.3 % (0.0-7.0); Hematocrit 39.4 % (41.0-53.0); Hemoglobin 12.7 g/dL (13.5-17.5); Lymphocytes % (auto) 18.9 % (10.0-50.0); Mean Corpuscular Hemoglobin 26.2 pg (28.0-32.0); Mean Corpuscular Hgb Conc. 32.2 g/dL (32.0-36.0); Mean Corpuscular Volume 81.2 fL (80.0-100.0); Monocytes % (auto) 9.3 % (0.0-12.0); Neutrophils % (auto) 71.1 % (37.0-80.0); Nucleated Red Blood Cells % 0.4 %; Red Blood Cells 4.86 10^6/uL (4.5-5.90); White Blood Cell 4.5 10^3/uL (4.4-10.8)
[2022-12-07 07:13] LABS: Alanine Aminotransferase 38 U/L (7-40); Albumin 3.8 g/dL (3.2-4.8); Alkaline Phosphatase 81 U/L (46-116); Anion Gap 7 (5-15); Aspartate Aminotransferase 19 U/L (13-40); BUN/Creatinine Ratio 6.9 (10.0-20.0); Bilirubin, Total 0.3 mg/dL (0.2-1.0); Blood Urea Nitrogen 7 mg/dL (9-23); Calcium 8.2 mg/dL (8.7-10.4); Carbon Dioxide 25 mmol/L (20-30); Chloride 105 mmol/L (98-107); Glucose 160 mg/dL (74-106); Potassium 3.6 mmol/L (3.5-5.1); Sodium 137 mmol/L (136-145); Total Protein 6.5 g/dL (5.7-8.2)
[2022-12-07] MEDS ORDERED: cefTRIAXone 1GM/50ML D5W 50 ML IV SCH (09:00)
[2022-12-07] MEDS: ENOXAPARIN SOD 40 MG/0.4 ML SYRINGE SC SCH (09:58)
[2022-12-07] MEDS: FERROUS SULFATE 325mg EC TAB PO SCH (09:59)
[2022-12-07] MEDS: POTASSIUM CHL 10 Meq TABLET PO SCH (09:59)
[2022-12-07] MEDS: AZITHROMYCIN 500MG/ 250ML 250 ML IV SCH (09:59)
[2022-12-07] MEDS: AMITRIPTYLINE HCL 25 MG TAB PO SCH ×2 (10:00→21:57)
[2022-12-07] MEDS: LIDOCAINE 5% TOPICAL PATCH TOP SCH (10:00)
[2022-12-07] MEDS: CYANOCOBALAMIN 5000 MCG PO SCH (10:00)
[2022-12-07] MEDS ORDERED: AMITRIPTYLINE HCL 25 MG TAB PO SCH (10:00)
[2022-12-07] MEDS: OSELTAMIVIR 75 MG CAP PO SCH ×2 (10:00→21:56)
[2022-12-07] MEDS: ERGOCALCIFEROL 50,000 UNIT(1.25MG) CAP PO SCH ×2 (10:11→10:18)
[2022-12-07] MEDS: ACETAMINOPHEN 325 MG TAB PO PRN (19:14)
[2022-12-07] MEDS ORDERED: ATORVASTATIN 20 MG TAB PO SCH (22:00)
[2022-12-08] MEDS: GABAPENTIN 300 MG CAP PO SCH ×2 (06:00→14:45)
[2022-12-08] MEDS: FUROSEMIDE 40 MG TAB PO SCH ×2 (06:00→18:07)
[2022-12-08] MEDS: LEVOTHYROXINE SODIUM 50 MCG TAB PO SCH (07:00)
[2022-12-08] MEDS: PANTOPRAZOLE 40 MG TAB PO SCH (07:00)
[2022-12-08 09:00] VITALS: BP 136/76; PULSE 99; RESP 22; TEMP 99.9; O2SAT 90
[2022-12-08] MEDS: AZITHROMYCIN 500MG/ 250ML 250 ML IV SCH (10:00)
[2022-12-08] MEDS: ENOXAPARIN SOD 40 MG/0.4 ML SYRINGE SC SCH (10:00)
[2022-12-08] MEDS: FERROUS SULFATE 325mg EC TAB PO SCH (10:00)
[2022-12-08] MEDS: AMITRIPTYLINE HCL 25 MG TAB PO SCH (10:00)
[2022-12-08] MEDS: CYANOCOBALAMIN 5000 MCG PO SCH (10:00)
[2022-12-08] MEDS: OSELTAMIVIR 75 MG CAP PO SCH (10:00)
[2022-12-08] MEDS: POTASSIUM CHL 10 Meq TABLET PO SCH (10:00)
[2022-12-08] MEDS: LIDOCAINE 5% TOPICAL PATCH TOP SCH (10:00)
[2022-12-08 11:03] VITALS: O2SAT 92
[2022-12-08 11:20] LABS: Alanine Aminotransferase 41 U/L (7-40); Albumin 3.9 g/dL (3.2-4.8); Alkaline Phosphatase 74 U/L (46-116); Anion Gap 8 (5-15); Aspartate Aminotransferase 12 U/L (13-40); BUN/Creatinine Ratio 7.2 (10.0-20.0); Bilirubin, Total 0.3 mg/dL (0.2-1.0); Blood Urea Nitrogen 7 mg/dL (9-23); Calcium 8.5 mg/dL (8.5-10.1); Carbon Dioxide 28 mmol/L (20-30); Chloride 104 mmol/L (98-107); Glucose 126 mg/dL (74-106); Potassium 3.3 mmol/L (3.5-5.1); Sodium 140 mmol/L (136-145); Total Protein 6.7 g/dL (5.7-8.2)
[2022-12-08 11:41] LABS: Basophils # (auto) 0 10 ^3/uL (0-0.2); Basophils % (auto) 0.3 % (0.0-2.0); Eosinophils # (auto) 0 10 ^3/uL (0-0.8); Lymphocytes # (auto) 1.1 10 ^3/uL (0.4-5.4); Monocytes # (auto) 0.3 10 ^3/uL (0-1.3); Neutrophils # (auto) 1.3 10 ^3/uL (1.6-8.6); Nucleated Red Blood Cells % 0.3 %; White Blood Cell 2.8 10^3/uL (4.4-10.8)
[2022-12-08 11:49] LABS: Eosinophils % (auto) 0.6 % (0.0-7.0); Hematocrit 40.6 % (41.0-53.0); Hemoglobin 13.2 g/dL (13.5-17.5); Lymphocytes % (auto) 40.2 % (10.0-50.0); Mean Corpuscular Hemoglobin 26.1 pg (28.0-32.0); Mean Corpuscular Hgb Conc. 32.6 g/dL (32.0-36.0); Mean Corpuscular Volume 80.1 fL (80.0-100.0); Monocytes % (auto) 11.7 % (0.0-12.0); Neutrophils % (auto) 47.2 % (37.0-80.0); Red Blood Cells 5.07 10^6/uL (4.5-5.90); Red Cell Distribution Width 17.3 % (11.8-14.3)
[2022-12-08 12:37] LABS: % Iron Saturation 7.4 % (20-55)
[2022-12-08] MEDS: SODIUM CHLORIDE 0.9% 1,000 ML IV SCH (12:45)
[2022-12-08 13:00] VITALS: BP 130/86; PULSE 99; RESP 20; TEMP 97.7; O2SAT 93
[2022-12-08 13:11] LABS: Folate (Folic Acid) 16.79 ng/mL (>5.38)
[2022-12-08 15:04] LABS: Magnesium 1.9 mg/dL (1.6-2.6)
[2022-12-08] MEDS ORDERED: OSEL75CA5 PO (15:56)
[2022-12-08 17:00] VITALS: BP 147/87; PULSE 89; RESP 14; TEMP 98.5; O2SAT 93
[2022-12-08] MEDS ORDERED: POTASSIUM EFFERVESENT TAB 25 MEQ PO ONE (17:00)
[2022-12-08 17:29] VITALS: BP 143/78; PULSE 89; RESP 14; TEMP 98.5; O2SAT 93
== END 2022-12-08 18:18 | disposition home or self-care (01) | DRG 139 ==
LOC: ER 05:22 → OVERFLOW 10:44 → WEST WING 13:57
PROVIDERS: ADMIT Internal Medicine; ATTEND Student in an Organized Health Care Education/Training Program
DX: J10.08 Influenza due to other identified influenza virus with other specified pneumonia (principal); K76.0 Fatty (change of) liver, not elsewhere classified; N13.30 Unspecified hydronephrosis; E66.01 Morbid (severe) obesity due to excess calories; E03.9 Hypothyroidism, unspecified; I10 Essential (primary) hypertension; Z20.822 Contact with and (suspected) exposure to COVID-19; R73.03 Prediabetes; N32.9 Bladder disorder, unspecified; D50.9 Iron deficiency anemia, unspecified; E78.5 Hyperlipidemia, unspecified; E87.6 Hypokalemia; M79.2 Neuralgia and neuritis, unspecified; R74.01 Elevation of levels of liver transaminase levels; J12.9 Viral pneumonia, unspecified; Z68.41 Body mass index [BMI] 40.0-44.9, adult; Z87.891 Personal history of nicotine dependence
CPT/HCPCS: 36415; 71045; 74176; 80053; 80061; 81001; 82306; 82607; 82746; 83036; 83540; 83550; 83605; 83690; 83735; 83880; 84439; 84443; 84481; 85025; 85610; 87040; 87070; 87205; 87426; 87804; 87880; 94640; 96361; 96365; 96367; G0378; J0696; J7060

== ENCOUNTER 2023-05-01 14:40 | Emergency (ER) | payer MEDICAID ==
[~2023-05-01] VITALS: Ht 170.2 cm; Wt 107.1 kg
[~2023-05-01 14:40] MED LIST changes: +OSEL75CA5 PO
[2023-05-01 15:52] LABS: Basophils # (auto) 0 10 ^3/uL (0-0.2); Eosinophils # (auto) 0.1 10 ^3/uL (0-0.8); Lymphocytes # (auto) 1.3 10 ^3/uL (0.4-5.4); Mean Corpuscular Hemoglobin 24.5 pg (28.0-32.0); Red Cell Distribution Width 18.8 % (11.8-14.3)
[2023-05-01 15:53] LABS: Basophils % (auto) 0.2 % (0.0-2.0); Eosinophils % (auto) 0.9 % (0.0-7.0); Hematocrit 45.1 % (41.0-53.0); Hemoglobin 14.6 g/dL (13.5-17.5); Lymphocytes % (auto) 17.3 % (10.0-50.0); Mean Corpuscular Hgb Conc. 32.4 g/dL (32.0-36.0); Mean Corpuscular Volume 75.4 fL (80.0-100.0); Monocytes # (auto) 0.5 10 ^3/uL (0-1.3); Monocytes % (auto) 7.3 % (0.0-12.0); Neutrophils # (auto) 5.5 10 ^3/uL (1.6-8.6); Neutrophils % (auto) 74.3 % (37.0-80.0); Nucleated Red Blood Cells % 0.2 %; Red Blood Cells 5.97 10^6/uL (4.5-5.90); White Blood Cell 7.4 10^3/uL (4.4-10.8)
[2023-05-01 16:00] LABS: Chloride 106 mmol/L (98-107); Potassium 4.6 mmol/L (3.5-5.1); Sodium 140 mmol/L (136-145)
[2023-05-01 16:01] LABS: Anion Gap 4 (5-15); Carbon Dioxide 30 mmol/L (20-30)
[2023-05-01 16:02] LABS: Calcium 9.9 mg/dL (8.7-10.4)
[2023-05-01 16:06] LABS: Glucose 106 mg/dL (74-106)
[2023-05-01 16:07] LABS: BUN/Creatinine Ratio 14.4 (10.0-20.0); Blood Urea Nitrogen 14 mg/dL (9-23)
[2023-05-01 16:49] LABS: Urine Bacteria MOD /hpf (None Seen); Urine Blood Negative /uL (Negative); Urine Clarity Clear (Clear); Urine Color Colorless (Yellow); Urine Mucus FEW (None Seen); Urine Protein, UAD Negative (Negative); Urine Specific Gravity 1.023 (1.001-1.035); Urine Urobilinogen Normal (Negative); Urine WBC 11 /hpf (0 - 3); Urine pH 6.5 (5.0-8.0)
[2023-05-01] MEDS ORDERED: CIPR-173 PO (16:56)
[2023-05-01] MEDS: VANCOMYCIN 1GM/200ML 200 ML IV ONE (19:13)
[2023-05-01 21:21] VITALS: BP 142/96; PULSE 91; RESP 16; TEMP 98.1; O2SAT 97
== END 2023-05-01 21:28 | disposition home or self-care (01) ==
LOC: ER 14:40
DX: G82.20 Paraplegia, unspecified (principal); N39.0 Urinary tract infection, site not specified; I10 Essential (primary) hypertension; Z87.891 Personal history of nicotine dependence
CPT/HCPCS: 36415; 80048; 81001; 85025; 96365; 99284; J3370

== ENCOUNTER 2023-05-09 12:29 | Emergency (ER) | payer MEDICAID ==
[~2023-05-09] VITALS: Ht 170.2 cm; Wt 112.1 kg
[~2023-05-09 12:29] MED LIST changes: +CIPR-173 PO
[2023-05-09 13:06] VITALS: BP 158/83; PULSE 94; RESP 18; TEMP 97.9; O2SAT 97
[2023-05-09 14:22] LABS: Urine Bacteria MANY /hpf (None Seen); Urine Blood Negative /uL (Negative); Urine Clarity Clear (Clear); Urine Color Yellow (Yellow); Urine Mucus FEW (None Seen); Urine Protein, UAD 1+ (Negative); Urine Specific Gravity 1.028 (1.001-1.035); Urine Urobilinogen Normal (Negative); Urine WBC 10 /hpf (0 - 3)
[2023-05-09 15:34] LABS: Basophils # (auto) 0 10 ^3/uL (0-0.2); Basophils % (auto) 0.4 % (0.0-2.0); Eosinophils # (auto) 0.1 10 ^3/uL (0-0.8); Eosinophils % (auto) 1.5 % (0.0-7.0); Hematocrit 40.2 % (41.0-53.0); Hemoglobin 12.7 g/dL (13.5-17.5); Lymphocytes # (auto) 1.1 10 ^3/uL (0.4-5.4); Lymphocytes % (auto) 27.8 % (10.0-50.0); Mean Corpuscular Hgb Conc. 31.6 g/dL (32.0-36.0); Mean Corpuscular Volume 75.9 fL (80.0-100.0); Monocytes # (auto) 0.4 10 ^3/uL (0-1.3); Monocytes % (auto) 10.1 % (0.0-12.0); Neutrophils # (auto) 2.5 10 ^3/uL (1.6-8.6); Neutrophils % (auto) 60.2 % (37.0-80.0); Nucleated Red Blood Cells % 0.3 %; Red Cell Distribution Width 18.6 % (11.8-14.3); White Blood Cell 4.1 10^3/uL (4.4-10.8)
[2023-05-09] MEDS ORDERED: LEVO250T58 PO (16:00)
[2023-05-09] MEDS ORDERED: CEFP200T15 PO (16:07)
== END 2023-05-09 16:08 | disposition home or self-care (01) ==
LOC: ER 12:29
DX: N30.00 Acute cystitis without hematuria (principal); M25.562 Pain in left knee; I10 Essential (primary) hypertension; Z87.891 Personal history of nicotine dependence
CPT/HCPCS: 36415; 73562; 81001; 85025

== ENCOUNTER 2023-06-02 09:15 | Inpatient (IN) | payer MEDICAID ==
[~2023-06-02] VITALS: Ht 200.7 cm; Wt 108.4 kg
[~2023-06-02 09:15] MED LIST changes: +CEFP200T15 PO; +LIDO5PAD12 EX; -LIDO5PAD8 EX
[2023-06-02 10:03] LABS: Urine Bacteria FEW /hpf (None Seen); Urine Blood 2+ /uL (Negative); Urine Budding Yeast OCCASIONAL /hpf (None Seen); Urine Clarity Clear (Clear); Urine Color Yellow (Yellow); Urine Mucus FEW (None Seen); Urine Protein, UAD 2+ (Negative); Urine Specific Gravity 1.034 (1.001-1.035); Urine Urobilinogen Normal (Negative); Urine WBC 25 /hpf (0 - 3)
[2023-06-02 11:04] LABS: Basophils # (auto) 0 10 ^3/uL (0-0.2); Eosinophils # (auto) 0.1 10 ^3/uL (0-0.8); Monocytes # (auto) 0.4 10 ^3/uL (0-1.3); Monocytes % (auto) 7.7 % (0.0-12.0)
[2023-06-02 11:05] LABS: Basophils % (auto) 0.6 % (0.0-2.0); Eosinophils % (auto) 1.7 % (0.0-7.0); Hematocrit 45.2 % (41.0-53.0); Hemoglobin 14.1 g/dL (13.5-17.5); Lymphocytes # (auto) 1.5 10 ^3/uL (0.4-5.4); Lymphocytes % (auto) 29.6 % (10.0-50.0); Mean Corpuscular Hemoglobin 22.9 pg (28.0-32.0); Mean Corpuscular Hgb Conc. 31.1 g/dL (32.0-36.0); Mean Corpuscular Volume 73.8 fL (80.0-100.0); Neutrophils % (auto) 60.4 % (37.0-80.0); Nucleated Red Blood Cells % 0.2 %; Red Blood Cells 6.13 10^6/uL (4.5-5.90); Red Cell Distribution Width 18.9 % (11.8-14.3)
[2023-06-02 11:10] LABS: Chloride 106 mmol/L (98-107); Potassium 4.2 mmol/L (3.5-5.1); Sodium 139 mmol/L (136-145)
[2023-06-02 11:11] LABS: Anion Gap 5 (5-15); Carbon Dioxide 28 mmol/L (20-30)
[2023-06-02 11:12] LABS: Calcium 9.7 mg/dL (8.5-10.1)
[2023-06-02 11:16] LABS: BUN/Creatinine Ratio 24.7 (10.0-20.0); Blood Urea Nitrogen 23 mg/dL (9-23); Glucose 110 mg/dL (74-106)
[2023-06-02] MEDS ORDERED: MORPHINE SULFATE INJ 2 MG/ml SYRG IV PRN (12:45)
[2023-06-02] MEDS ORDERED: hydrALAZINE HCL 20 MG/ML VL IV PRN (12:45)
[2023-06-02] MEDS ORDERED: cefTRIAXone 1GM/50ML D5W 50 ML IV ONE (12:45)
[2023-06-02] MEDS ORDERED: NITROGLYCERIN 0.4 MG SL TAB SL PRN (12:45)
[2023-06-02] MEDS ORDERED: ACETAMINOPHEN 325 MG TAB PO PRN (12:45)
[2023-06-02] MEDS ORDERED: ERGOCALCIFEROL 50,000 UNIT(1.25MG) CAP PO SCH (12:45)
[2023-06-02 12:53] LABS: Triglycerides 193 mg/dL (< 150)
[2023-06-02 12:54] LABS: LDL Cholesterol 158 mg/dL (< 100)
[2023-06-02 12:55] LABS: Cholesterol 210 mg/dL (< 200); HDL Cholesterol 42 mg/dL (40-59)
[2023-06-02] MEDS: amLODIPine BESYLATE 5 MG TAB PO ONE (14:47)
[2023-06-02] MEDS: IBUPROFEN 800 MG TAB PO SCH (14:48)
[2023-06-02] MEDS: SODIUM CHLORIDE 0.9% 1,000 ML IV SCH (14:56)
[2023-06-02] MEDS: SODIUM CHLORIDE 0.9% 1,000 ML IV ONE (15:00)
[2023-06-02] MEDS: CEFEPIME 2GM/50ML NS 50 ML IV ONE ×2 (15:08→22:13)
[2023-06-02] MEDS: HYDROcodone-ACET 10/325MG TAB PO SCH (17:33)
[2023-06-02] MEDS: FUROSEMIDE 40 MG TAB PO SCH (17:33)
[2023-06-02 20:48] VITALS: PULSE 87; RESP 18; O2SAT 98
[2023-06-02] MEDS: HYDROcodone-ACET 10/325MG TAB ONE (22:08)
[2023-06-02] MEDS: IBUPROFEN 800 MG TAB PO ONE (22:17)
[2023-06-02] MEDS: CEFEPIME 2GM/50ML NS 50 ML IV SCH (22:22)
[2023-06-03] VITALS (8 sets, daily range): BP systolic 115–151; BP diastolic 61–98; PULSE 62–94; RESP 17–20; TEMP 97.3–98.6; O2SAT 94–97
[2023-06-03] MEDS: HYDROcodone-ACET 10/325MG TAB ONE (03:38)
[2023-06-03] MEDS: HYDROcodone-ACET 10/325MG TAB PO PRN (03:46)
[2023-06-03] MEDS: PANTOPRAZOLE 40 MG TAB PO ONE (05:44)
[2023-06-03] MEDS: FUROSEMIDE 40 MG TAB ONE (05:44)
[2023-06-03] MEDS: CEFEPIME 2GM/50ML NS 50 ML IV ONE (05:45)
[2023-06-03] MEDS: LEVOTHYROXINE SODIUM 25 MCG TAB ONE (06:02)
[2023-06-03] MEDS: PANTOPRAZOLE 40 MG TAB PO SCH (06:06)
[2023-06-03] MEDS: LEVOTHYROXINE SODIUM 25 MCG TAB PO SCH (06:07)
[2023-06-03 06:53] LABS: Basophils # (auto) 0 10 ^3/uL (0-0.2); Basophils % (auto) 0.4 % (0.0-2.0); Eosinophils # (auto) 0.1 10 ^3/uL (0-0.8); Eosinophils % (auto) 1.4 % (0.0-7.0); Hematocrit 43.1 % (41.0-53.0); Hemoglobin 13.7 g/dL (13.5-17.5); Lymphocytes # (auto) 1.7 10 ^3/uL (0.4-5.4); Mean Corpuscular Hemoglobin 23.2 pg (28.0-32.0); Mean Corpuscular Hgb Conc. 31.8 g/dL (32.0-36.0); Mean Corpuscular Volume 72.7 fL (80.0-100.0); Monocytes # (auto) 0.5 10 ^3/uL (0-1.3); Monocytes % (auto) 9.6 % (0.0-12.0); Neutrophils % (auto) 56.6 % (37.0-80.0); Nucleated Red Blood Cells % 0.2 %; Red Blood Cells 5.93 10^6/uL (4.5-5.90); Red Cell Distribution Width 19.3 % (11.8-14.3); White Blood Cell 5.3 10^3/uL (4.4-10.8)
[2023-06-03] MEDS ORDERED: PATIENTS OWN MEDICATION (Levothyroxine Sodium 1 TAB) PO SCH (07:00)
[2023-06-03 07:11] LABS: Alanine Aminotransferase 48 U/L (7-40); Albumin 4.5 g/dL (3.2-4.8); Alkaline Phosphatase 111 U/L (46-116); Anion Gap 8 (5-15); Aspartate Aminotransferase 20 U/L (13-40); BUN/Creatinine Ratio 19.1 (10.0-20.0); Bilirubin, Total 0.4 mg/dL (0.2-1.0); Blood Urea Nitrogen 17 mg/dL (9-23); Calcium 9.1 mg/dL (8.5-10.1); Carbon Dioxide 24 mmol/L (20-30); Chloride 106 mmol/L (98-107); Glucose 115 mg/dL (74-106); Potassium 3.5 mmol/L (3.5-5.1); Sodium 138 mmol/L (136-145); Total Protein 7.3 g/dL (5.7-8.2)
[2023-06-03] MEDS ORDERED: cefTRIAXone 1GM/50ML D5W 50 ML IV SCH (09:00)
[2023-06-03] MEDS: AMITRIPTYLINE HCL 150 MG PO SCH (09:46)
[2023-06-03] MEDS: amLODIPine BESYLATE 5 MG TAB PO SCH (09:56)
[2023-06-03] MEDS: ENOXAPARIN SOD 40 MG/0.4 ML SYRINGE SC SCH (09:57)
[2023-06-03] MEDS ORDERED: PATIENTS OWN MEDICATION (Ferrous Sulfate (Ferosul) 325 MG) PO SCH (10:00)
[2023-06-03] MEDS ORDERED: PATIENTS OWN MEDICATION (Potassium Chloride (Potassium Chloride ER) 10 MEQ) PO SCH (10:00)
[2023-06-03] MEDS: CYANOCOBALAMIN 1000 MCG PO SCH (10:00)
[2023-06-03] MEDS: POTASSIUM CHL 10 Meq TABLET PO SCH (10:36)
[2023-06-03] MEDS: FERROUS SULFATE 325mg EC TAB PO SCH (10:37)
[2023-06-03] MEDS: FLUTICASONE PROP NASAL SPR 0.05 % (50MCG) 16GM SCH (12:07)
[2023-06-03] MEDS: IBUPROFEN 800 MG TAB PO PRN (12:50)
[2023-06-03] MEDS ORDERED: AMITRIPTYLINE HCL 25 MG TAB PO SCH (18:00)
[2023-06-03] MEDS: AMITRIPTYLINE HCL 25 MG TAB PO SCH (18:37)
[2023-06-03] MEDS: GABAPENTIN 300 MG CAP PO SCH (18:37)
[2023-06-04] VITALS (8 sets, daily range): BP systolic 111–129; BP diastolic 64–81; PULSE 76–100; RESP 17–20; TEMP 97.8–98.6; O2SAT 92–97
[2023-06-04] MEDS: FUROSEMIDE 40 MG TAB PO SCH (10:10)
[2023-06-05 01:00] VITALS: BP 109/59; PULSE 88; RESP 16; TEMP 98.6; O2SAT 95
[2023-06-05 05:00] VITALS: BP 108/65; PULSE 85; RESP 16; TEMP 98.4; O2SAT 96
[2023-06-05 08:00] VITALS: PULSE 96; RESP 18; O2SAT 98
[2023-06-05 08:50] VITALS: BP 140/94; PULSE 87; RESP 20; TEMP 98.2; O2SAT 97
== END 2023-06-05 09:57 | disposition left against medical advice (07) | DRG 466 ==
LOC: ER 09:15 → TELE 12:40 → TELE-WESTW 18:33
PROVIDERS: ADMIT Nurse Practitioner Family; ATTEND Nurse Practitioner Family
DX: T83.518A Infection and inflammatory reaction due to other urinary catheter, initial encounter (principal); G82.20 Paraplegia, unspecified; N30.00 Acute cystitis without hematuria; E03.9 Hypothyroidism, unspecified; E66.01 Morbid (severe) obesity due to excess calories; I10 Essential (primary) hypertension; N31.9 Neuromuscular dysfunction of bladder, unspecified; Z79.899 Other long term (current) drug therapy; Z87.891 Personal history of nicotine dependence; Z68.26 Body mass index [BMI] 26.0-26.9, adult; Z79.891 Long term (current) use of opiate analgesic
CPT/HCPCS: 36415; 80048; 80053; 80061; 81001; 82962; 83605; 84443; 85025; 87040; 87086; 96365; G0378; J0692

== ENCOUNTER 2023-08-08 07:39 | Emergency (ER) | payer MEDICAID ==
[~2023-08-08] VITALS: Ht 170.2 cm; Wt 107.5 kg
[2023-08-08 08:29] VITALS: BP 168/77; PULSE 94; RESP 16; TEMP 98.3; O2SAT 98
[2023-08-08] MEDS: methylPREDNISolone SOD SUCC 125 MG/2 ML VL IM ONE (08:59)
[2023-08-08] MEDS ORDERED: MELO7.5T7 PO (09:01)
[2023-08-08] MEDS: KETOROLAC TROMETH 30 MG/ML 1ML VIAL IM ONE (09:01)
== END 2023-08-08 09:02 | disposition home or self-care (01) ==
LOC: ER 07:39
DX: M54.41 Lumbago with sciatica, right side (principal); I10 Essential (primary) hypertension; E03.9 Hypothyroidism, unspecified; Z87.891 Personal history of nicotine dependence; Z79.1 Long term (current) use of non-steroidal anti-inflammatories (NSAID); Z79.2 Long term (current) use of antibiotics; Z79.899 Other long term (current) drug therapy
CPT/HCPCS: 96372; 99284; J1885; J2919

== ENCOUNTER 2023-08-17 06:48 | Emergency (ER) | payer MEDICAID ==
[~2023-08-17] VITALS: Ht 170.2 cm; Wt 106.8 kg
[~2023-08-17 06:48] MED LIST changes: +MELO7.5T7 PO
[2023-08-17 07:42] VITALS: BP 186/90; PULSE 99; RESP 18; TEMP 97.6; O2SAT 100
[2023-08-17] MEDS: methylPREDNISolone SOD SUCC 125 MG/2 ML VL IM ONE (07:57)
[2023-08-17] MEDS: KETOROLAC TROMETH 60MG/2ML VIAL IM ONE (07:58)
[2023-08-17] MEDS ORDERED: PRED20TA2 PO (07:58)
[2023-08-17] MEDS ORDERED: MELO7.5T7 PO (07:58)
== END 2023-08-17 08:13 | disposition home or self-care (01) ==
LOC: ER 06:48
DX: M51.16 Intervertebral disc disorders with radiculopathy, lumbar region (principal); I10 Essential (primary) hypertension; Z87.891 Personal history of nicotine dependence; Z79.899 Other long term (current) drug therapy
CPT/HCPCS: 72100; 96372; 99284; J1885; J2919

== ENCOUNTER 2023-09-02 22:12 | Emergency (ER) | payer MEDICAID ==
[~2023-09-02] VITALS: Ht 170.2 cm; Wt 102.0 kg
[~2023-09-02 22:12] MED LIST changes: +PRED20TA2 PO
[2023-09-02] MEDS: amLODIPine BESYLATE 5 MG TAB PO ONE (22:29)
[2023-09-02 23:59] VITALS: TEMP 98.2
[2023-09-03] VITALS: BP 170/95; PULSE 104; RESP 17; O2SAT 97
[2023-09-03] MEDS: cloNIDine HCL 0.1 MG TAB PO ONE (00:15)
[2023-09-03] MEDS ORDERED: IBUP-1455 PO (02:35)
== END 2023-09-03 02:43 | disposition home or self-care (01) ==
LOC: ER 22:12
DX: S63.501A Unspecified sprain of right wrist, initial encounter (principal); I10 Essential (primary) hypertension; E07.9 Disorder of thyroid, unspecified; E66.01 Morbid (severe) obesity due to excess calories; Z68.35 Body mass index [BMI] 35.0-35.9, adult; Z79.899 Other long term (current) drug therapy; Z87.891 Personal history of nicotine dependence; X58.XXXA Exposure to other specified factors, initial encounter; Y93.89 Activity, other specified; Y92.89 Other specified places as the place of occurrence of the external cause; Y99.8 Other external cause status
CPT/HCPCS: 29125; 73110; 73130

== ENCOUNTER 2023-11-09 08:18 | Inpatient (IN) | payer MEDICAID ==
[~2023-11-09] VITALS: Ht 170.2 cm; Wt 116.2 kg
[2023-11-09 09:30] VITALS: PULSE 107; RESP 18; O2SAT 97
[2023-11-09 09:54] LABS: Urine Bacteria None Seen /hpf (None Seen)
[2023-11-09 10:15] LABS: Chloride 105 mmol/L (98-107); Sodium 140 mmol/L (136-145)
[2023-11-09 10:16] LABS: Anion Gap 5 (5-15); Calcium 9.3 mg/dL (8.7-10.4); Carbon Dioxide 30 mmol/L (20-30)
[2023-11-09 10:21] LABS: Blood Urea Nitrogen 13 mg/dL (9-23); Glucose 204 mg/dL (74-106)
[2023-11-09 10:47] LABS: Basophils # (auto) 0 10 ^3/uL (0-0.2); Basophils % (auto) 0.5 % (0.0-2.0); Eosinophils # (auto) 0.1 10 ^3/uL (0-0.8); Lymphocytes # (auto) 1.2 10 ^3/uL (0.4-5.4); Monocytes # (auto) 0.4 10 ^3/uL (0-1.3); Neutrophils # (auto) 2.9 10 ^3/uL (1.6-8.6); Neutrophils % (auto) 63.4 % (37.0-80.0); White Blood Cell 4.6 10^3/uL (4.4-10.8)
[2023-11-09 10:50] LABS: Eosinophils % (auto) 1.7 % (0.0-7.0); Hematocrit 43.5 % (41.0-53.0); Lymphocytes % (auto) 25.4 % (10.0-50.0); Mean Corpuscular Hemoglobin 23.3 pg (28.0-32.0); Mean Corpuscular Hgb Conc. 32.1 g/dL (32.0-36.0); Mean Corpuscular Volume 72.7 fL (80.0-100.0); Nucleated Red Blood Cells % 0.1 %; Platelet Count (auto) 215 10^3/uL (140-450); Red Blood Cells 5.99 10^6/uL (4.5-5.90)
[2023-11-09 10:52] LABS: Red Cell Distribution Width 20.5 % (11.8-14.3)
[2023-11-09] MEDS: ONDANSETRON HCL 4 MG/2 ML VIAL IV ONE (12:18)
[2023-11-09] MEDS: MORPHINE SULFATE 4 MG/ML SYR/VIAL IV ONE (12:18)
[2023-11-09 12:26] LABS: Urine Blood 3+ /uL (Negative); Urine Clarity Turbid (Clear); Urine Color Brown (Yellow); Urine Mucus FEW (None Seen); Urine Protein, UAD 3+ (Negative); Urine Specific Gravity 1.021 (1.001-1.035); Urine Urobilinogen Normal (Negative); Urine WBC 46 /hpf (0 - 3)
[2023-11-09] MEDS: SODIUM CHLORIDE 0.9% 1,000 ML IV ONE ×2 (13:45→15:30)
[2023-11-09] MEDS ORDERED: NITROGLYCERIN 0.4 MG SL TAB SL PRN (15:15)
[2023-11-09] MEDS ORDERED: ONDANSETRON HCL 4 MG/2 ML VIAL IV PRN (15:15)
[2023-11-09] MEDS ORDERED: DOCUSATE SOD 100 MG CAP PO PRN (15:15)
[2023-11-09] MEDS ORDERED: MORPHINE SULFATE INJ 2 MG/ml SYRG IV PRN (15:15)
[2023-11-09] MEDS: MEROPENEM 1GM IVPB 50 ML IV ONE (15:34)
[2023-11-09] MEDS: POLYETHYLENE GLYCOL 17 GM PWDR PO ONE (15:45)
[2023-11-09] MEDS: FLUCONAZOLE 200MG/100ML 100 ML IV ONE (17:25)
[2023-11-09] MEDS ORDERED: GABA-1250 PO (17:30)
[2023-11-09] MEDS ORDERED: AML5T PO (17:30)
[2023-11-09 18:30] VITALS: BP 165/97; PULSE 87; RESP 17; TEMP 98.3; O2SAT 94
[2023-11-09 20:00] VITALS: PULSE 90; RESP 18; O2SAT 95
[2023-11-09] MEDS: MORPHINE SULFATE INJ 2 MG/ml SYRG IV PRN (20:37)
[2023-11-09 21:00] VITALS: BP 156/90; PULSE 90; RESP 18; TEMP 98.2; O2SAT 95
[2023-11-09] MEDS: MEROPENEM 1GM IVPB 50 ML IV SCH (21:34)
[2023-11-09] MEDS: GABAPENTIN 300 MG CAP PO SCH (22:39)
[2023-11-09] MEDS: AMITRIPTYLINE HCL 25 MG TAB PO SCH (22:40)
[2023-11-10] VITALS (8 sets, daily range): BP systolic 138–174; BP diastolic 87–115; PULSE 79–96; RESP 16–18; TEMP 97.1–98.3; O2SAT 92–96
[2023-11-10] MEDS: hydrALAZINE HCL 20 MG/ML VL IV PRN (02:28)
[2023-11-10] MEDS: PANTOPRAZOLE 40 MG TAB PO SCH (09:59)
[2023-11-10] MEDS: FLUCONAZOLE 200MG/100ML 100 ML IV SCH (10:00)
[2023-11-10] MEDS ORDERED: POLYETHYLENE GLYCOL 17 GM PWDR PO PRN (10:00)
[2023-11-10] MEDS: amLODIPine BESYLATE 5 MG TAB PO SCH (10:00)
[2023-11-10 10:08] LABS: Alanine Aminotransferase 37 U/L (7-40); Albumin 3.7 g/dL (3.2-4.8); Alkaline Phosphatase 87 U/L (46-116); Anion Gap 4 (5-15); BUN/Creatinine Ratio 13.3 (10.0-20.0); Blood Urea Nitrogen 12 mg/dL (9-23); Calcium 8.8 mg/dL (8.7-10.4); Carbon Dioxide 30 mmol/L (20-30); Chloride 105 mmol/L (98-107); Glucose 149 mg/dL (74-106); Potassium 4.1 mmol/L (3.5-5.1); Sodium 139 mmol/L (136-145)
[2023-11-10 10:09] LABS: Aspartate Aminotransferase < 8 U/L (13-40); Bilirubin, Total 0.4 mg/dL (0.2-1.0); Total Protein 5.9 g/dL (5.7-8.2)
[2023-11-10 10:51] LABS: Basophils # (auto) 0 10 ^3/uL (0-0.2); Eosinophils # (auto) 0.1 10 ^3/uL (0-0.8); Eosinophils % (auto) 1.6 % (0.0-7.0); Hemoglobin 12.7 g/dL (13.5-17.5); Lymphocytes # (auto) 1.1 10 ^3/uL (0.4-5.4); Mean Corpuscular Hemoglobin 23.1 pg (28.0-32.0); Monocytes # (auto) 0.4 10 ^3/uL (0-1.3); Neutrophils # (auto) 2.4 10 ^3/uL (1.6-8.6)
[2023-11-10 10:54] LABS: Basophils % (auto) 0.3 % (0.0-2.0); Hematocrit 40.1 % (41.0-53.0); Lymphocytes % (auto) 26.8 % (10.0-50.0); Mean Corpuscular Hgb Conc. 31.7 g/dL (32.0-36.0); Mean Corpuscular Volume 72.8 fL (80.0-100.0); Monocytes % (auto) 9.8 % (0.0-12.0); Neutrophils % (auto) 61.5 % (37.0-80.0); Nucleated Red Blood Cells % 0.2 %; Platelet Count (auto) 178 10^3/uL (140-450); Red Blood Cells 5.51 10^6/uL (4.5-5.90)
[2023-11-10 11:05] LABS: Red Cell Distribution Width 20.2 % (11.8-14.3)
[2023-11-11] VITALS (8 sets, daily range): BP systolic 118–151; BP diastolic 80–94; PULSE 88–97; RESP 16–18; TEMP 97.8–98.7; O2SAT 92–98
[2023-11-12 05:00] VITALS: BP 135/84; PULSE 97; RESP 18; TEMP 97.5; O2SAT 93
[2023-11-12 09:00] VITALS: BP 125/89; PULSE 87; RESP 16; TEMP 98.5; O2SAT 97
[2023-11-12 13:00] VITALS: BP 137/83; PULSE 86; RESP 18; TEMP 98.1; O2SAT 95
[2023-11-12 17:00] VITALS: BP 117/84; PULSE 83; RESP 18; TEMP 98.4; O2SAT 94
[2023-11-12 20:00] VITALS: RESP 18
[2023-11-12 20:19] VITALS: BP 142/86; PULSE 99; RESP 18
== END 2023-11-12 21:15 | disposition home or self-care (01) | DRG 463 ==
LOC: ER 08:18 → OVERFLOW 15:16 → WEST WING 18:33
PROVIDERS: ADMIT Nurse Practitioner Family; ATTEND Internal Medicine
DX: N13.6 Pyonephrosis (principal); E03.9 Hypothyroidism, unspecified; Z16.24 Resistance to multiple antibiotics; K59.00 Constipation, unspecified; I10 Essential (primary) hypertension; Z87.891 Personal history of nicotine dependence; Z79.899 Other long term (current) drug therapy; R73.9 Hyperglycemia, unspecified
CPT/HCPCS: 36415; 74176; 80048; 80053; 81001; 85025; 87086; 96361; 96365; 96375; G0378; J1450; J2185; J2405

== ENCOUNTER 2024-11-18 16:54 | Emergency (ER) | payer MEDICAID ==
[~2024-11-18] VITALS: Ht 175.3 cm; Wt 106.0 kg
[~2024-11-18 16:54] MED LIST changes: +AML5T PO; -CEFP200T15 PO; -CIPR-173 PO; +GABA-1250 PO
[2024-11-18 16:55] VITALS: BP 157/82; PULSE 108; RESP 20; TEMP 99; O2SAT 97
--- NOTE | 2024-11-18 17:29 | ED.PDOC ---
Musculoskeletal HPI Comments This is a 59 year old male presenting to the ED with chief complaint of left hand 3rd and 4th finger injury. Patient reports that he had fallen off of his mobility scooter earlier today, injuring his left 3rd and 4th fingers. Patient relays that he has now had pain to both of the fingers along with hypermobility that is not usual for him. Patient denies any numbness, weakness, tingling, or further injuries. Chief Complaint: Upper Extremity Time Seen by MD: 17:27 Primary Care Provider: Jing Duval Notes: Nurses Notes, Medications, Allergies Allergies: Coded Allergies: NO KNOWN ALLERGIES (Unverified , 03/02/13) Home Meds Active Scripts Ibuprofen Micronized (Ibuprofen) 800 Mg Tab, 800 MG PO Q8HP PRN, #30 TAB Prov:MEAGAN FLANAGAN PAC 09/03/23 Prednisone (Prednisone) 20 Mg Tab, 40 MG PO DAILY for 10 Days, #20 TAB Prov:IGLESIA LUCAS 08/17/23 Meloxicam (Meloxicam) 7.5 Mg Tab, 1 TAB PO BID, #30 TAB Prov:IGLESIA LUCAS PA 08/17/23 Meloxicam (Meloxicam) 7.5 Mg Tab, 1 TAB PO DAILYP PRN for 30 Days, #30 TAB 0 Refills Prov:SERGE LOPEZ [employer]YROLL BOOKKEEPER 08/08/23 Oseltamivir Phosphate (Tamiflu) 75 Mg Cap, 1 CAP PO BID for 4 Days, #8 CAP Prov:CIRILO SHANNON RESIDENT 12/08/22 Reported Medications Gabapentin (Gabapentin) 300 Mg Cap, 300 MG PO TID, MG 11/09/23 Amlodipine Besylate (NORVASC TABLET) 5 Mg Tb, 10 TAB PO DAILY, #30 TAB 5 Refills 11/09/23 Pantoprazole Sodium Sesquihydr (Protonix) 40 Mg Tab, 40 MG PO QAM, #30 TAB 11/25/19 Lidocaine (Lidocaine Patch 5%) 5 % Pad, 2 PATCH EX DAILY, PAD LEAVE ON FOR 12 HOURS AND THEN OFF FOR 12 HOURS 11/25/19 Cyanocobalamin (Vitamin B12) 1,000 Mcg Tab, 5000 MCG PO DAILY, TAB 11/25/19 Testosterone Cypionate (Testosterone Cypionate) 200 Mg/Ml Inj, 200 MG IJ QWEEKLY, INJ 11/25/19 Amitriptyline Hcl (Amitriptyline Hcl) 150 Mg Tab, 1 TAB PO DAILY, #30 TAB 1 Refill FOR SCIATIC NERVE PAIN 11/25/19 Ferrous Sulfate (Ferosul) 325 Mg Tab, 325 MG PO DAILY, TAB 11/25/19 Ibuprofen Micronized (Ibuprofen) 800 Mg Tab, 800 MG PO TIDP, TAB 11/25/19 Ergocalciferol (Vitamin D) 50,000 Unit Cap, 27854 UNIT PO QWEEKLY, CAP 11/25/19 Fluticasone Propionate (Nasal) (Flonase Allergy Relief) 50 Mcg/Act Spr, 1 SPRAY NA DAILYP, SPRAY 11/25/19 Potassium Chloride (Potassium Chloride ER) 10 Meq Tab, 10 MEQ PO DAILY, TAB 11/25/19 Furosemide (Furosemide) 40 Mg Tab, 40 MG PO BIDD, MG 11/25/19 Levothyroxine Sodium (Levothyroxine Sodium) 75 Mcg Tab, 1 TAB PO QAM, #30 TAB 5 Refills 11/25/19 Hydrocodone-Acetaminophen (Carter 10-325 mg) 1 Tab Tab, 1 TAB PO QIDP, TAB 07/12/17 Information Source: Patient Mode of Arrival: Ambulatory Location: Left Extremity Location: Finger 3, Finger 4 Timing: Hours Prehospital treatment: None Severity: Moderate Able to Move Extremity: Yes Pain: Moderate Mechanism: Blunt Trauma Circumstances: Fall Onset of Symptoms: After Trauma Symptoms: Pain DVT Risk Factors: NONE Last Tetanus: UTD Past Medical History PAST MEDICAL HISTORY: HTN, Thyroid, UTI'S Past Medical History (Other): 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 Surgical History (Other): Low, abdominal Family History Family History: Reviewed,noncontributory to illness Social History Smoker: Quit Greater Than 1 Year Alcohol: Sober Drugs: Denies Drug Use Lives In: Home Constitutional: denies: chills, diaphoresis, fatigue, fever, malaise, sweats, weakness, others EENTM: denies: blurred vision, double vision, ear bleeding, ear discharge, ear drainage, ear pain, ear ringing, eye pain, eye redness, hearing loss, mouth pain, mouth swelling, nasal discharge, nose bleeding, nose congestion, nose pain, photophobia, tearing, throat pain, throat swelling, voice changes, others Respiratory: denies: cough, hemoptysis, orthopnea, SOB at rest, shortness of breath, SOB with excertion, stridor, wheezing, others Cardiovascular: denies: chest pain, dizzy spells, diaphoresis, Dyspnea on exertion, edema, irregular heart beat, left arm pain, lightheadedness, palpitations, PND, syncope, others Gastrointestinal: denies: abdomen distended, abdominal pain, blood streaked bowels, constipated, diarrhea, dysphagia, difficulty swallowing, hematemesis, melena, nausea, poor appetite, poor fluid intake, rectal bleeding, rectal pain, vomiting, others Genitourinary: denies: burning, dysuria, flank pain, frequency, hematuria, incontinence, penile discharge, penile sore, pain, testicle pain, testicle swelling, urgency, others Neurological: denies: dizziness, fainting, headache, left sided numbness, left sided weakness, numbness, paresthesia, pre-existing deficit, right sided numbness, right sided weakness, seizure, speech problems, tingling, tremors, weakness, others Musculoskeletal: reports: others (Left 3rd and 4th finger pain); denies: back pain, gout, joint pain, joint swelling, muscle pain, muscle stiffness, neck pain Integumetry: denies: bruises, change in color, change in hair/nails, dryness, laceration, lesions, lumps, rash, wounds, others Allergic/Immunocompromised: denies: Difficulty Healing, Frequent Infections, Hives, Itching, others Hematologic/Lymphatic: denies: anemia, blood clots, easy bleeding, easy bruising, swollen glands, others Endocrine: denies: excessive hunger, excessive sweating, excessive thirst, excessive urination, flushing, intolerance to cold, intolerance to heat, unexplained weight gain, unexplained weight loss, others Psychiatric: denies: anxiety, bipolar disorder, depression, hopeless, panic disorder, schizophrenia, sleepless, suicidal, others All Other Systems: Reviewed and Negative Physical Exam General Appearance: No Apparent Distress HEENT: Other (Pupils and face symmetric. Moist mucous membranes.) Neck: Full Range of Motion, Non-Tender, Normal Inspection, Supple Respiratory: Lungs Clear, No Accessory Muscle Use, No Respiratory Distress, Normal Breath Sounds Cardiovascular: No Edema, No JVD, Regular Rate/Rhythm Breast Exam: Deferred Gastrointestinal: Non Tender, Soft Genitalia: Deferred Pelvic: Deferred Rectal: Deferred Extremities: Other (Left 3rd and 4th finger soft tissue swelling, bruising and tenderness greatest around the PIP joints. There is laxity at the 3rd and 4th PIP joint with medial and lateral pressure on the joint) Neurologic: Alert (Oriented x4), Normal Affect, Normal Mood, Other (Ambulatory) Cerebellar Function: NOT DONE Reflexes: NOT DONE Skin: Dry, Normal Color, Warm Lymphatic: NOT DONE Was a procedure done? Was a procedure done?: Yes Sedation Sedation?: No Other Procedure Procedure Left 3rd and 4th finger splinting with jose taping Indication 4th PIP joint fracture Notes An aluminum splint was applied to the 4th finger to stabilize the PIP joint. The 3rd finger was jose-taped to the 4th finger. Patient tolerated the procedure well. The left upper extremity was neurovascularly intact after the splint was applied. Differential Diagnosis EXT Differential Diagnosis: Fracture, Sprain, Contusion, Strain X-Ray, Labs, Meds, VS Vital Signs Date Time Temp Pulse Resp B/P (MAP) Pulse Ox O2 Delivery O2 Flow Rate FiO2 11/18/24 16:55 99.0 108 20 157/82 97 99.0 PROCEDURE(s): LHAN - L HAND 3V XRAY REASON: fall, 3rd and 4th finger pain, PIP joint laxity ORDER NUMBER(s): [id number], ACCESSION NUMBER(s): [id number] Indication: fall, 3rd and 4th finger pain, PIP joint laxity Technique: XY L HAND 3V XRAYXY Comparison: None FINDINGS/IMPRESSION: 3 mm ossific fragment at the 4th PIP joint could represent small avulsion fracture /chip fracture. Moderate degenerative changes of the 1st MCP joint, STT interval, 1st carpometacarpal joint, D IP joints. X-Ray, Labs, Meds, VS Comment 59-year-old male with a history of hypertension and spinal cord injury with resultant right lower extremity weakness complaining of left 3rd and 4th finger pain and joint laxity after a fall off his scooter Vitals remarkable for heart rate 108, BP 157/82 Exam remarkable for left 3rd and 4th finger swelling, tenderness, bruising and laxity at the PIP joints Rhythm strip independently interpreted by me: Sinus tach, rate 108, no ectopy. Left hand x-rays: 3 mm ossific fragment at the 4th PIP joint could represent small avulsion fracture /chip fracture. Patient declined any pain medication in the ED. left 4th finger was splinted in the 3rd finger was jose-taped. Please see procedure note for details. On re-evaluation, patient states he can take his own pain medication at home, as he is in pain management. Vitals are stable. He is no longer tachycardic. Patient appears stable for discharge with close outpatient follow-up with a hand specialist. Patient was referred to [place] and local hand specialists. Time of 1ST Reevaluation: 18:27 Reevaluation 1ST: Unchanged Patient Education/Counseling: Diagnosis, Treatment Family Education/Counseling: No Family Present Sepsis Sepsis Reasesment Focused Exam Orders: Tachycardia is likely due to pain, not suspected infection. Sepsis bundle is not initiated at this time. Heart Rate >90: Yes Departure 1 Departure Time of Disposition: 20:00 Impression: Primary Impression: Finger fracture, left Qualified Codes: S62.605A - Fracture of unspecified phalanx of left ring finger, initial encounter for closed fracture Additional Impression: Injury of ligament of hand Qualified Codes: S69.92XA - Unspecified injury of left wrist, hand and finger(s), initial encounter Disposition: 01 HOME / SELF CARE / HOMELESS Condition: Stable Additional Instructions: Your x-rays show a small fracture of your 4th finger. There is also likely a ligamentous injury. I have enclosed the report below to show your doctor when you follow-up. You must follow-up with an orthopedic hand specialist for further evaluation of your injuries. You may follow-up directly at [facility] or [facility] for referral to a hand surgeon/specialist. I have also provided a list of local hand specialists. You may also follow-up with your primary doctor for referral. Return to ER for uncontrolled pain, worsening symptoms, or any other concern. [address] [address] Ph: [phone] DIAGNOSTIC IMAGING Diagnostic Imaging Report : [id number] Signed PATIENT: KIRT READ ACCT: [id number] UNIT: [id number] : 1965 LOC: ER ROOM / BED: / AGE / SEX: 59 / M ADM STATUS: REG ER SERVICE 1720 ORDERING PHYSICIAN: AAKASH FERNANDEZ MD PROCEDURE(s): LHAN - L HAND 3V XRAY REASON: fall, 3rd and 4th finger pain, PIP joint laxity ORDER NUMBER(s): [id number], ACCESSION NUMBER(s): [id number] Indication: fall, 3rd and 4th finger pain, PIP joint laxity Technique: XY L HAND 3V XRAYXY Comparison: None FINDINGS/IMPRESSION: 3 mm ossific fragment at the 4th PIP joint could represent small avulsion fracture /chip fracture. Moderate degenerative changes of the 1st MCP joint, STT interval, 1st carpometacarpal joint, D IP joints. Discharged With: Self Critical Care Note Critical Care Time?: No Stability Stability form required: No Heart Score Heart Score: Heart Score Response (Comments) Value History N/A 0 EKG N/A 0 Age N/A 0 Risk Factors N/A 0 Troponin N/A 0 Total 0 I personally scribed for AAKASH FERNANDEZ MD ([email or web address]) on 11/18/24 at 17:29. Electronically submitted by Tim Morillo ([email or web address]). I personally scribed for AAKASH FERNANDEZ MD ([email or web address]) on 11/18/24 at 18:44. Electronically submitted by Tim Morillo ([email or web address]). AAKASH FERNANDEZ MD Nov 18, 2024 17:29
--- NOTE | 2024-11-18 18:07 | DVH ---
Indication: fall, 3rd and 4th finger pain, PIP joint laxity Technique: XY L HAND 3V XRAYXY Comparison: None FINDINGS/IMPRESSION: 3 mm ossific fragment at the 4th PIP joint could represent small avulsion fracture /chip fracture. Moderate degenerative changes of the 1st MCP joint, STT interval, 1st carpometacarpal joint, D IP trace nts.
== END 2024-11-19 02:21 | disposition home or self-care (01) ==
LOC: ER 16:54
DX: S62.605A Fracture of unspecified phalanx of left ring finger, initial encounter for closed fracture (principal); Z79.899 Other long term (current) drug therapy; W19.XXXA Unspecified fall, initial encounter; Y93.89 Activity, other specified; Y92.89 Other specified places as the place of occurrence of the external cause; Y99.8 Other external cause status
CPT/HCPCS: 29130; 73130

== ENCOUNTER 2024-12-27 17:59 | Emergency (ER) | payer MEDICAID ==
[~2024-12-27] VITALS: Ht 170.2 cm; Wt 104.5 kg
--- NOTE | 2024-12-27 20:28 | DVH ---
CLINICAL INDICATION: injury/pain TECHNIQUE: 3 radiographic views of the right shoulder were obtained. Comparison: None FINDINGS/IMPRESSION: There appear to be arthritic changes noted at the right acromioclavicular joint. Correlate tenderness over the right acromioclavicular joint TURP distinguish acute versus chronic dis ease. There are no prior studies for comparison.
--- NOTE | 2024-12-27 20:58 | ED.PDOC ---
Back pain HPI HPI Comments Pt presents to the ER with C/O right shoulder pain. Pt states previous injury from working out and reports he slipped today and caught himself with his right arm. Pt states he heard and felt a "pop." CSM and ROM intact. denies numbness or weakness Chief Complaint: Upper Extremity Time Seen by MD: 18:16 Primary Care Provider: Jing Duval Notes: Nurses Notes, Medications, Allergies Allergies: Coded Allergies: NO KNOWN ALLERGIES (Unverified , 03/02/13) Home Meds Active Scripts Ibuprofen Micronized (Ibuprofen) 800 Mg Tab, 800 MG PO Q8HP PRN, #30 TAB Prov:MEAGAN FLANAGAN PAC 09/03/23 Prednisone (Prednisone) 20 Mg Tab, 40 MG PO DAILY for 10 Days, #20 TAB Prov:IGLESIA LUCAS 08/17/23 Meloxicam (Meloxicam) 7.5 Mg Tab, 1 TAB PO BID, #30 TAB Prov:IGLESIA LUCAS PA 08/17/23 Meloxicam (Meloxicam) 7.5 Mg Tab, 1 TAB PO DAILYP PRN for 30 Days, #30 TAB 0 Refills Prov:SERGE LOPEZ SUPERVISOR [employer] 08/08/23 Oseltamivir Phosphate (Tamiflu) 75 Mg Cap, 1 CAP PO BID for 4 Days, #8 CAP Prov:CIRILO SHANNON RESIDENT 12/08/22 Reported Medications Gabapentin (Gabapentin) 300 Mg Cap, 300 MG PO TID, MG 11/09/23 Amlodipine Besylate (NORVASC TABLET) 5 Mg Tb, 10 TAB PO DAILY, #30 TAB 5 Refills 11/09/23 Pantoprazole Sodium Sesquihydr (Protonix) 40 Mg Tab, 40 MG PO QAM, #30 TAB 11/25/19 Lidocaine (Lidocaine Patch 5%) 5 % Pad, 2 PATCH EX DAILY, PAD LEAVE ON FOR 12 HOURS AND THEN OFF FOR 12 HOURS 11/25/19 Cyanocobalamin (Vitamin B12) 1,000 Mcg Tab, 5000 MCG PO DAILY, TAB 11/25/19 Testosterone Cypionate (Testosterone Cypionate) 200 Mg/Ml Inj, 200 MG IJ QWEEKLY, INJ 11/25/19 Amitriptyline Hcl (Amitriptyline Hcl) 150 Mg Tab, 1 TAB PO DAILY, #30 TAB 1 Refill FOR SCIATIC NERVE PAIN 11/25/19 Ferrous Sulfate (Ferosul) 325 Mg Tab, 325 MG PO DAILY, TAB 11/25/19 Ibuprofen Micronized (Ibuprofen) 800 Mg Tab, 800 MG PO TIDP, TAB 11/25/19 Ergocalciferol (Vitamin D) 50,000 Unit Cap, 35328 UNIT PO QWEEKLY, CAP 11/25/19 Fluticasone Propionate (Nasal) (Flonase Allergy Relief) 50 Mcg/Act Spr, 1 SPRAY NA DAILYP, SPRAY 11/25/19 Potassium Chloride (Potassium Chloride ER) 10 Meq Tab, 10 MEQ PO DAILY, TAB 11/25/19 Furosemide (Furosemide) 40 Mg Tab, 40 MG PO BIDD, MG 11/25/19 Levothyroxine Sodium (Levothyroxine Sodium) 75 Mcg Tab, 1 TAB PO QAM, #30 TAB 5 Refills 11/25/19 Hydrocodone-Acetaminophen (Russell 10-325 mg) 1 Tab Tab, 1 TAB PO QIDP, TAB 07/12/17 Mode of Arrival: Ambulatory Past Medical History PAST MEDICAL HISTORY: HTN, Thyroid, UTI'S Surgical History: Denies all surgeries Family History Family History: Reviewed,noncontributory to illness Social History Smoker: Quit Greater Than 1 Year Alcohol: Sober Drugs: Denies Drug Use Lives In: Home All Other Systems: Reviewed and Negative (see hpi) Physical Exam General Appearance: No Apparent Distress, Normal HEENT: Pharynx Normal Neck: Full Range of Motion, Non-Tender Respiratory: Lungs Clear, No Respiratory Distress, Normal Breath Sounds Cardiovascular: No Murmur, Normal Peripheral Pulses, Regular Rate/Rhythm Breast Exam: Deferred Gastrointestinal: Non Tender, Soft Genitalia: Deferred Pelvic: Deferred Rectal: Deferred Extremities: Normal capillary refill, Normal range of motion Musculoskeletal : Apperance: Normal Neurologic: Alert, No Motor Deficits, Normal Affect, Normal Mood, No Sensory Deficits Cerebellar Function: Normal Reflexes: NOT DONE Skin: Dry, Normal Color, Warm Lymphatic: No Adenopathy Was a procedure done? Was a procedure done?: No Back Pain Differential Dx Differential Diagnosis: Fracture, Musculoskeletal Pain X-Ray, Labs, Meds, VS Vital Signs Date Time Temp Pulse Resp B/P (MAP) Pulse Ox O2 Delivery O2 Flow Rate FiO2 12/27/24 18:01 98.9 128 18 117/88 95 98.9 Current Medications Medications (Trade) Dose Ordered Sig/Burke Route Start Time Stop Time Status Last Admin Ketorolac Tromethamine (Toradol Injection) 60 mg ONCE ONCE IM 12/27/24 21:00 12/27/24 21:01 DC 12/27/24 21:09 X-Ray, Labs, Meds, VS Comment FINDINGS/IMPRESSION: There appear to be arthritic changes noted at the right acromioclavicular joint. Correlate tenderness over the right acromioclavicular joint TURP distinguish acute versus chronic disease. There are no prior studies for comparison. Patient advised to follow up with his appointment with the surgeon to review his recent MRI results. Patient placed in sling Toradol 60 mg IM given patient reports improvement in pain requesting discharge at this time. ER return precautions given patient indicates understanding agrees with discharge plan of care. Images Reviewed?: Images reviewed and evaluated by me Time of 1ST Reevaluation: 18:30 Reevaluation 1ST: Unchanged Time of 2ND Reevaluation: 21:01 Reevaluation 2ND: Improved Patient Education/Counseling: Diagnosis, Treatment, Need For Follow Up Family Education/Counseling: No Family Present SEPSIS Sepsis Screen Date sepsis recognized/suspect: Dec 27, 2024 Time Sepsis recognized/suspect: 180 Recent Procedure: No On Antibiotic Therapy: No Respiratory Rate >20: No Heart Rate >90: Yes Temp<36 C (96.8 F) or >38.3 C: No SBP <90 or MAP <65 mmHG: No New Acute Mental Status Change: No Is the patient on CPAP, BIPAP,: No Physician Orders R Shoulder 2+ View Xray (12/27/24 19:18) Apply Sling (12/27/24 21:00) Vital Signs Date Time Temp Pulse Resp B/P (MAP) Pulse Ox O2 Delivery O2 Flow Rate FiO2 12/27/24 18:01 98.9 128 18 117/88 95 98.9 Medications Medications Dose Ordered Sig/Burke Route Start Time Stop Time Status Last Admin Dose Admin Ketorolac Tromethamine 60 mg ONCE ONCE IM 12/27/24 21:00 12/27/24 21:01 DC 12/27/24 21:09 Departure 1 Departure Time of Disposition: 21:01 Impression: Primary Impression: Right shoulder strain Qualified Codes: S46.911A - Strain of unspecified muscle, fascia and tendon at shoulder and upper arm level, right arm, initial encounter Additional Impression: Muscle strain, shoulder region Qualified Codes: S46.911A - Strain of unspecified muscle, fascia and tendon at shoulder and upper arm level, right arm, initial encounter Disposition: 01 HOME / SELF CARE / HOMELESS Condition: Stable Discharged With: Self Critical Care Note Critical Care Time?: No Stability Stability form required: TARIQ Anne Dec 27, 2024 20:58
[2024-12-27] MEDS: KETOROLAC TROMETH 60MG/2ML VIAL IM ONE (21:09)
[2024-12-27 21:16] VITALS: BP 122/88; PULSE 88; RESP 20; TEMP 98; O2SAT 96
== END 2024-12-27 21:18 | disposition home or self-care (01) ==
LOC: ER 18:01
DX: S46.911A Strain of unspecified muscle, fascia and tendon at shoulder and upper arm level, right arm, initial encounter (principal); I10 Essential (primary) hypertension; Z79.899 Other long term (current) drug therapy; Z79.890 Hormone replacement therapy; Z79.52 Long term (current) use of systemic steroids; Z87.440 Personal history of urinary (tract) infections; Z87.891 Personal history of nicotine dependence; X58.XXXA Exposure to other specified factors, initial encounter; Y93.89 Activity, other specified; Y92.89 Other specified places as the place of occurrence of the external cause; Y99.8 Other external cause status
CPT/HCPCS: 73030; 96372; 99283; J1885